=== PATIENT | female | born 1930 | race Caucasian/White ===

== ENCOUNTER 2017-11-24 14:17 | Inpatient (IN) | payer MEDICARE, OTHER ==
[2017-11-24] MEDS ORDERED: IPRATROPIUM-ALBUTEROL 3 ML NEB INHALATION STA (14:25)
--- NOTE | 2017-11-24 14:33 | ED ---
SOB HPI - General Stated Complaint: Cough, Poss pneumonia Time Seen by Provider: 11/24/17 14:18 Source: patient, EMS, RN notes reviewed Mode of arrival: EMS Limitations: no limitations - History of Present Illness Initial Comments: This an 87-year-old female presents emergency Department from her intermediate home with chief complaint cough congestion shortness of breath. Patient states she's been sick for last 3 days. Patient states a hot and cold with no reported fever. Patient denies any chest pain states he has had some mild shortness breath with productive cough. She denies sore throat but she hasn't some mild sinus congestion. Patient denies abdominal pain including nausea, vomiting, diarrhea constipation. Patient states that she does have some mild leg swelling though this is for. She does not believe that she takes a water pill has not been diagnosed with CHF. Patient denies any sick contacts. Patient denies any history of asthma or COPD. - Related Data Home Medications Medication Instructions Recorded Confirmed Citalopram Hydrobromide [CeleXA] 20 mg PO HS 10/02/16 11/24/17 Aspirin EC [Ecotrin Low Dose] 81 mg PO HS 11/24/17 11/24/17 Hydrochlorothiazide [Hydrodiuril] 25 mg PO DAILY 11/24/17 11/24/17 Losartan Potassium 100 mg PO DAILY 11/24/17 11/24/17 amLODIPine [Norvasc] 5 mg PO DAILY 11/24/17 11/24/17 busPIRone HCl [Buspar] 5 mg PO BID 11/24/17 11/24/17 Allergies Allergy/AdvReac Type Severity Reaction Status Date / Time codeine AdvReac Nausea & Verified 11/24/17 14:38 Vomiting Review of Systems ROS Statement: Those systems with pertinent positive or pertinent negative responses have been documented in the HPI. ROS Other: All systems not noted in ROS Statement are negative. Past Medical History Past Medical History: Hypertension, Osteoarthritis (OA) Additional Past Medical History / Comment(s): HX OF GLAUCOMA, HX OF CELLULITIS IN LEGS & FEET OCT 2016., BLOOD IN STOOL. History of Any Multi-Drug Resistant Organisms: None Reported Past Surgical History: Bladder Surgery, Hysterectomy, Tonsillectomy Additional Past Surgical History / Comment(s): bunionectomy rosa feet, laser eye sx for glaucoma, plastic sx on nose, bladder suspension, egd/colonoscopy. Past Anesthesia/Blood Transfusion Reactions: No Reported Reaction Past Psychological History: Anxiety, Depression Smoking Status: Former smoker Past Alcohol Use History: None Reported Additional Past Alcohol Use History / Comment(s): started smoking at ge 17 smoked 1-2 ppd, quit in early s Past Drug Use History: None Reported - Past Family History Mother Family Medical History: Coronary Artery Disease (CAD) Additional Family Medical History / Comment(s): heart problems Father Additional Family Medical History / Comment(s): anuerysm General Exam General appearance: alert, in no apparent distress Head exam: Present: atraumatic, normocephalic, normal inspection Eye exam: Present: normal appearance, PERRL, EOMI. Absent: scleral icterus, conjunctival injection, periorbital swelling ENT exam: Present: normal exam, normal oropharynx, mucous membranes moist, TM's normal bilaterally, normal external ear exam Neck exam: Present: normal inspection, full ROM. Absent: tenderness, meningismus, lymphadenopathy Respiratory exam: Present: rhonchi (Minimal). Absent: normal lung sounds bilaterally, respiratory distress, wheezes, rales, stridor Cardiovascular Exam: Present: regular rate, normal rhythm, normal heart sounds. Absent: systolic murmur, diastolic murmur, rubs, gallop, clicks GI/Abdominal exam: Present: soft, normal bowel sounds. Absent: distended, tenderness, guarding, rebound, rigid Extremities exam: Present: pedal edema (Minimal) Skin exam: Present: warm, dry Course Vital Signs 11/24/17 11/24/17 11/24/17 14:20 14:43 14:52 Temperature 99.2 F Pulse Rate 79 77 Respiratory 20 Rate Blood Pressure 107/52 O2 Sat by Pulse 92 L 91 L Oximetry 11/24/17 15:58 Temperature Pulse Rate 92 Respiratory 20 Rate Blood Pressure 99/50 O2 Sat by Pulse 91 L Oximetry Medical Decision Making - Medical Decision Making 87-year-old female presented emergency from for fever cough congestion. Clinically the patient has pneumonia. Patient was 7 Rocephin and azithromycin. - Lab Data Result diagrams: 11/24/17 14:45 11/24/17 14:45 Lab Results 11/24/17 11/24/17 11/24/17 Range/Units 14:45 14:45 14:45 WBC 18.9 H (3.8-10.6) k/uL RBC 4.11 (3.80-5.40) m/uL Hgb 12.3 (11.4-16.0) gm/dL Hct 38.4 (34.0-46.0) % MCV 93.4 (80.0-100.0) fL MCH 29.8 (25.0-35.0) pg MCHC 31.9 (31.0-37.0) g/dL RDW 12.7 (11.5-15.5) % Plt Count 154 (150-450) k/uL Neutrophils % 94 % Lymphocytes % 2 % Monocytes % 3 % Eosinophils % 0 % Basophils % 0 % Neutrophils # 17.7 H (1.3-7.7) k/uL Lymphocytes # 0.4 L (1.0-4.8) k/uL Monocytes # 0.6 (0-1.0) k/uL Eosinophils # 0.1 (0-0.7) k/uL Basophils # 0.0 (0-0.2) k/uL PT (9.0-12.0) sec INR (<1.2) APTT (22.0-30.0) sec Sodium 140 (137-145) mmol/L Potassium 4.0 (3.5-5.1) mmol/L Chloride 103 (98-107) mmol/L Carbon Dioxide 27 (22-30) mmol/L Anion Gap 10 mmol/L BUN 40 H (7-17) mg/dL Creatinine 1.30 H (0.52-1.04) mg/dL Est GFR (MDRD) Af Amer 47 (>60 ml/min/1.73 sqM) Est GFR (MDRD) Non-Af 39 (>60 ml/min/1.73 sqM) Glucose 169 H (74-99) mg/dL Plasma Lactic Acid Yash (0.7-2.0) mmol/L Calcium 9.2 (8.4-10.2) mg/dL Magnesium 1.6 (1.6-2.3) mg/dL Total Bilirubin 0.8 (0.2-1.3) mg/dL AST 12 L (14-36) U/L ALT 23 (9-52) U/L Alkaline Phosphatase 78 (38-126) U/L Total Creatine Kinase 63 (30-135) U/L CK-MB (CK-2) 0.4 (0.0-2.4) ng/mL CK-MB (CK-2) Rel Index 0.6 Troponin I <0.012 (0.000-0.034) ng/mL NT-Pro-B Natriuret Pep pg/mL Total Protein 7.1 (6.3-8.2) g/dL Albumin 3.6 (3.5-5.0) g/dL Influenza Type A RNA (Not Detectd) Influenza Type B (PCR) (Not Detectd) 11/24/17 11/24/17 11/24/17 Range/Units 14:45 14:45 14:45 WBC (3.8-10.6) k/uL RBC (3.80-5.40) m/uL Hgb (11.4-16.0) gm/dL Hct (34.0-46.0) % MCV (80.0-100.0) fL MCH (25.0-35.0) pg MCHC (31.0-37.0) g/dL RDW (11.5-15.5) % Plt Count (150-450) k/uL Neutrophils % % Lymphocytes % % Monocytes % % Eosinophils % % Basophils % % Neutrophils # (1.3-7.7) k/uL Lymphocytes # (1.0-4.8) k/uL Monocytes # (0-1.0) k/uL Eosinophils # (0-0.7) k/uL Basophils # (0-0.2) k/uL PT 12.0 (9.0-12.0) sec INR 1.3 H (<1.2) APTT 25.4 (22.0-30.0) sec Sodium (137-145) mmol/L Potassium (3.5-5.1) mmol/L Chloride (98-107) mmol/L Carbon Dioxide (22-30) mmol/L Anion Gap mmol/L BUN (7-17) mg/dL Creatinine (0.52-1.04) mg/dL Est GFR (MDRD) Af Amer (>60 ml/min/1.73 sqM) Est GFR (MDRD) Non-Af (>60 ml/min/1.73 sqM) Glucose (74-99) mg/dL Plasma Lactic Acid Yash 1.0 (0.7-2.0) mmol/L Calcium (8.4-10.2) mg/dL Magnesium (1.6-2.3) mg/dL Total Bilirubin (0.2-1.3) mg/dL AST (14-36) U/L ALT (9-52) U/L Alkaline Phosphatase (38-126) U/L Total Creatine Kinase (30-135) U/L CK-MB (CK-2) (0.0-2.4) ng/mL CK-MB (CK-2) Rel Index Troponin I (0.000-0.034) ng/mL NT-Pro-B Natriuret Pep 276 pg/mL Total Protein (6.3-8.2) g/dL Albumin (3.5-5.0) g/dL Influenza Type A RNA (Not Detectd) Influenza Type B (PCR) (Not Detectd) 11/24/17 Range/Units 14:45 WBC (3.8-10.6) k/uL RBC (3.80-5.40) m/uL Hgb (11.4-16.0) gm/dL Hct (34.0-46.0) % MCV (80.0-100.0) fL MCH (25.0-35.0) pg MCHC (31.0-37.0) g/dL RDW (11.5-15.5) % Plt Count (150-450) k/uL Neutrophils % % Lymphocytes % % Monocytes % % Eosinophils % % Basophils % % Neutrophils # (1.3-7.7) k/uL Lymphocytes # (1.0-4.8) k/uL Monocytes # (0-1.0) k/uL Eosinophils # (0-0.7) k/uL Basophils # (0-0.2) k/uL PT (9.0-12.0) sec INR (<1.2) APTT (22.0-30.0) sec Sodium (137-145) mmol/L Potassium (3.5-5.1) mmol/L Chloride (98-107) mmol/L Carbon Dioxide (22-30) mmol/L Anion Gap mmol/L BUN (7-17) mg/dL Creatinine (0.52-1.04) mg/dL Est GFR (MDRD) Af Amer (>60 ml/min/1.73 sqM) Est GFR (MDRD) Non-Af (>60 ml/min/1.73 sqM) Glucose (74-99) mg/dL Plasma Lactic Acid Yash (0.7-2.0) mmol/L Calcium (8.4-10.2) mg/dL Magnesium (1.6-2.3) mg/dL Total Bilirubin (0.2-1.3) mg/dL AST (14-36) U/L ALT (9-52) U/L Alkaline Phosphatase (38-126) U/L Total Creatine Kinase (30-135) U/L CK-MB (CK-2) (0.0-2.4) ng/mL CK-MB (CK-2) Rel Index Troponin I (0.000-0.034) ng/mL NT-Pro-B Natriuret Pep pg/mL Total Protein (6.3-8.2) g/dL Albumin (3.5-5.0) g/dL Influenza Type A RNA Not Detected (Not Detectd) Influenza Type B (PCR) Not Detected (Not Detectd) - EKG Data EKG Comments: EKG performed at 14:43 normal sinus rhythm rate of 70 AL 144 QRS 82 QT/QTC 384/ 414 Disposition Clinical Impression: Pneumonia Disposition: ADMITTED IP TO THIS HOSP Condition: Stable Referrals: Sidra Peace DO [Primary Care Provider] - 1-2 days
[2017-11-24 15:05] LABS: Basophils % (A) 0 %; Eosinophils # (A) 0.1 k/uL (0-0.7); Eosinophils % (A) 0 %; HCT 38.4 % (34.0-46.0); HGB 12.3 gm/dL (11.4-16.0); Lymphocytes # (A) 0.4 k/uL (1.0-4.8); Lymphocytes % (A) 2 %; MCH 29.8 pg (25.0-35.0); MCHC 31.9 g/dL (31.0-37.0); MCV 93.4 fL (80.0-100.0); Mean Platelet Volume 8.4; Monocytes # (A) 0.6 k/uL (0-1.0); Monocytes % (A) 3 %; Neutrophils # (A) 17.7 k/uL (1.3-7.7); Neutrophils % (A) 94 %; Platelet Count 154 k/uL (150-450); RBC 4.11 m/uL (3.80-5.40); RDW 12.7 % (11.5-15.5); WBC 18.9 k/uL (3.8-10.6)
[2017-11-24 15:12] LABS: Albumin 3.6 g/dL (3.5-5.0); Calcium 9.2 mg/dL (8.4-10.2); Magnesium 1.6 mg/dL (1.6-2.3); Total Bilirubin 0.8 mg/dL (0.2-1.3); Total Protein 7.1 g/dL (6.3-8.2)
--- NOTE | 2017-11-24 15:28 | XR ---
EXAMINATION TYPE: XR chest 2V DATE OF EXAM: 11/24/2017 COMPARISON: October 02, 2016. HISTORY: Chest pain TECHNIQUE: Frontal and lateral views of the chest are obtained. FINDINGS: Opacity in the right upper lobe has slightly improved since the prior study but still marianne ins present. The computed tomography from October 02, 2016 did not reveal any pathology at this loca tion. There is a deformity of several right ribs which was seen on the previous examination. No defin ite pneumothorax or pleural effusion is identified. There is exaggeration of the normal thoracic kyph osis. IMPRESSION: No acute cardiopulmonary process.
[2017-11-24 15:32] LABS: Creatine Kinase 63 U/L (30-135)
[2017-11-24] MEDS ORDERED: SODIUM CHLORIDE 0.9% 1,000 ML IV ONE (15:36)
[2017-11-24 15:44] LABS: Creatine Kinase MB 0.4 ng/mL (0.0-2.4); Troponin I <0.012 ng/mL (0.000-0.034)
[2017-11-24 15:47] LABS: INR 1.3 (<1.2); Partial Thromboplastin Time 25.4 sec (22.0-30.0)
[2017-11-24] MEDS: SODIUM CHLORIDE 0.9% 1,000 ML IV SCH (15:58)
[2017-11-24] MEDS ORDERED: cefTRIAXone IN SWFI 1,000 MG/10 ML SYRINGE IVP STA (16:17)
[2017-11-24] MEDS ORDERED: AZITHROMYCIN 500 MG in SODIUM CHLORIDE 0.9% 250 ML IVPB STA (16:18)
[2017-11-24] MEDS ORDERED: PNEUMONIA PROTOCOL UTILIZED 1 EACH MISC PO PRN (16:21)
[2017-11-24] MEDS ORDERED: HYDROcodone/APAP 5-325MG 1 EACH TAB PO STA (16:25)
[2017-11-24] MEDS: IPRATROPIUM-ALBUTEROL 3 ML NEB INHALATION PRN (18:00)
[2017-11-24] MEDS ORDERED: FUROSEMIDE 10 MG/ML 2 ML VIAL IV STA (18:03)
--- NOTE | 2017-11-24 18:27 | XR ---
EXAMINATION TYPE: XR chest 1V portable DATE OF EXAM: 11/24/2017 COMPARISON: September 24 2018 HISTORY: Shortness of breath TECHNIQUE: Single frontal view of the chest is obtained. FINDINGS: Single upright portable view the chest demonstrates prior rib fracture and a mid right rib . No pneumothorax or sizable pleural effusion is identified. The cardiac silhouette is within normal limits. Calcified aortic arch which slightly displaces the trachea to the right. IMPRESSION: No definite abnormalities identified on this single upright portable view of the chest.
[2017-11-24] MEDS: FUROSEMIDE 10 MG/ML 4 ML VIAL IV STA ×2 (18:31→18:33)
[2017-11-24] MEDS: methylPREDNISolone SOD SUCCI 125 MG/2 ML VIAL IV STA ×2 (19:40)
[2017-11-24] MEDS: cefTRIAXone IN SWFI 1,000 MG/10 ML SYRINGE IVP SCH (20:32)
[2017-11-24 20:44] LABS: Glucose,Whole Blood 133 mg/dL (75-99)
[2017-11-24] MEDS: INSULIN ASPART 100 UNIT/ML 1 ML 10 ML VIAL SQ SCH (21:04)
[2017-11-24] MEDS: methylPREDNISolone SOD SUCCI 125 MG/2 ML VIAL IV SCH (23:24)
[2017-11-25 05:33] LABS: Appearance,Urine Cloudy (Clear); Bacteria,Urine Occasional /hpf; Bilirubin,Urine Negative (Negative); Blood,Urine Small (Negative); Color,Urine Yellow; Glucose,Urine (UA) Negative (Negative); Hyaline Casts,Urine 8 /lpf (0-2); Ketones,Urine Negative (Negative); Leukocyte Esterase,Urine Large (Negative); Mucus,Urine Rare /hpf; Nitrite,Urine Negative (Negative); Protein,Urine 1+ (Negative); RBC,Urine 22 /hpf (0-5); Specific Gravity,Urine 1.016 (1.001-1.035); Squamous Epithelial Cell,Urine 3 /hpf (0-4); Urobilinogen,Urine <2.0 mg/dL (<2.0); WBC,Urine 101 /hpf (0-5)
[2017-11-25] MEDS: SODIUM CHLORIDE 0.9% 1,000 ML IV SCH (05:35)
[2017-11-25] MEDS: methylPREDNISolone SOD SUCCI 125 MG/2 ML VIAL IV SCH ×4 (05:39→23:38)
[2017-11-25 06:50] LABS: Glucose,Whole Blood 163 mg/dL (75-99)
[2017-11-25] MEDS: IPRATROPIUM-ALBUTEROL 3 ML NEB INHALATION PRN ×4 (07:53→19:32)
[2017-11-25] MEDS: INSULIN ASPART 100 UNIT/ML 1 ML 10 ML VIAL SQ SCH ×4 (07:54→21:54)
--- NOTE | 2017-11-25 11:51 | XR ---
EXAMINATION TYPE: XR chest 2V DATE OF EXAM: 11/25/2017 COMPARISON: Prior chest x-ray 11/24/2017 HISTORY: Pneumonia TECHNIQUE: Frontal and lateral views of the chest are obtained. FINDINGS: Left lower lobe airspace disease persists. Heart size is stable and prominent. Patient is rotated. Lung volumes are low. No evident pneumothorax. Old rib fractures noted incidentally. IMPRESSION: Findings suggest left lower lobe pneumonia and possible associated effusion, follow-up r ecommended.
[2017-11-25 12:07] LABS: Glucose,Whole Blood 210 mg/dL (75-99)
[2017-11-25 12:16] LABS: Basophils % (A) 0 %; Eosinophils % (A) 0 %; HCT 39.4 % (34.0-46.0); HGB 12.1 gm/dL (11.4-16.0); Hypochromasia Marked; Lymphocytes # (A) 0.4 k/uL (1.0-4.8); Lymphocytes % (A) 2 %; MCH 29.8 pg (25.0-35.0); MCHC 30.8 g/dL (31.0-37.0); MCV 96.7 fL (80.0-100.0); Mean Platelet Volume 9.5; Monocytes # (A) 0.6 k/uL (0-1.0); Monocytes % (A) 2 %; Neutrophils # (A) 21.8 k/uL (1.3-7.7); Neutrophils % (A) 95 %; Platelet Count 153 k/uL (150-450); RBC 4.08 m/uL (3.80-5.40); RDW 13.6 % (11.5-15.5); WBC 22.9 k/uL (3.8-10.6)
[2017-11-25 12:26] LABS: Calcium 8.8 mg/dL (8.4-10.2); Potassium 4.2 mmol/L (3.5-5.1)
[2017-11-25] MEDS: cefTRIAXone IN SWFI 1,000 MG/10 ML SYRINGE IVP SCH ×2 (12:30→20:12)
[2017-11-25 15:59] LABS: Hemoglobin A1C 6.7 % (4.0-6.0)
[2017-11-25 16:59] LABS: Glucose,Whole Blood 277 mg/dL (75-99)
[2017-11-25] MEDS ORDERED: AZITHROMYCIN 500 MG in SODIUM CHLORIDE 0.9% 250 ML IVPB SCH (17:00)
[2017-11-25] MEDS ORDERED: INSULIN ASPART 100 UNIT/ML 1 ML 10 ML VIAL SQ ONE (17:03)
[2017-11-25] MEDS: AZITHROMYCIN 500 MG TAB PO SCH (17:28)
--- NOTE | 2017-11-25 17:46 | P.HPIM ---
History of Present Illness H&P Date: 11/24/17 Chief Complaint: Cough with difficulty in breathing Mrs. Iraheta is an 87-year-old female with a past medical history of hypertension osteoarthritis coming into the hospital with a chief complaint of difficulty in breathing along with cough for the past 3 days. Patient lives in a [facility] facility. Patient states that she has been sick for the past 3 days having fevers on and off associated with cough that is productive in nature. She was also having difficulty in breathing. Patient denies having any sore throat. Patient started is at the bedside and states that she had her flu vaccine for this season . Patient complains of pain in her upper back since this morning. Patient denies having any chest pain. She denies having abdominal pain nausea vomiting diarrhea or constipation. At baseline patient is able to take care of her ADLs. But for the past 2-3 days she has been mostly in bed. Patient denies having any sick contacts She started to have the upper back pain since this morning, pain is more when she tries to move it in a certain direction. No recent travel. No lower extremity swelling. Review of Systems REVIEW OF SYSTEMS: PSYCH: No anxiety or depression NEURO:No c/o weakness of the extremties, No facial droop, No speech abnormalities. VASCULAR: Peripheral nervous system within the normal limits no edema HEMATOLOGIC: No history of easy bleeding and bruising . No recent infections . RESPIRATORY: As per HPI IMMUNE: No infections INTEGUMENT: no rashes OPHTHALMOLOGIC: No blurry vision and no eye discharge : No dysuria or hematuria CARDIAC: No chest pain , mild shortness of breath ,no paroxysmal nocturnal dyspnea MUSCULOSKELETAL : No Aches or pains in the joints or muscles. GI: No abdominal pain, Nausea or vomiting. No constipation or diarrhea. Past Medical History Past Medical History: Hypertension, Osteoarthritis (OA) Additional Past Medical History / Comment(s): HX OF GLAUCOMA, HX OF CELLULITIS IN LEGS & FEET OCT 2016., BLOOD IN STOOL. History of Any Multi-Drug Resistant Organisms: None Reported Past Surgical History: Bladder Surgery, Hysterectomy, Tonsillectomy Additional Past Surgical History / Comment(s): bunionectomy rosa feet, laser eye sx for glaucoma, plastic sx on nose, bladder suspension, egd/colonoscopy. Past Anesthesia/Blood Transfusion Reactions: No Reported Reaction Past Psychological History: Anxiety, Depression Smoking Status: Former smoker Past Alcohol Use History: None Reported Additional Past Alcohol Use History / Comment(s): started smoking at ge 17 smoked 1-2 ppd, quit in early s Past Drug Use History: None Reported - Past Family History Mother Family Medical History: Coronary Artery Disease (CAD) Additional Family Medical History / Comment(s): heart problems Father Additional Family Medical History / Comment(s): anuerysm Medications and Allergies Home Medications Medication Instructions Recorded Confirmed Type Citalopram Hydrobromide [CeleXA] 20 mg PO HS 10/02/16 11/24/17 History Aspirin EC [Ecotrin Low Dose] 81 mg PO HS 11/24/17 11/24/17 History Hydrochlorothiazide [Hydrodiuril] 25 mg PO DAILY 11/24/17 11/24/17 History Losartan Potassium 100 mg PO DAILY 11/24/17 11/24/17 History amLODIPine [Norvasc] 5 mg PO DAILY 11/24/17 11/24/17 History busPIRone HCl [Buspar] 5 mg PO BID 11/24/17 11/24/17 History Allergies Allergy/AdvReac Type Severity Reaction Status Date / Time codeine AdvReac Nausea & Verified 11/24/17 14:38 Vomiting Physical Exam Vitals: Vital Signs Temp Pulse Resp BP Pulse Ox 11/24/17 17:12 99.1 F 85 22 100/55 93 L 11/24/17 15:58 92 20 99/50 91 L 11/24/17 14:52 77 11/24/17 14:43 91 L 11/24/17 14:20 99.2 F 79 20 107/52 92 L Intake and Output 11/24/17 11/24/17 11/24/17 06:59 14:59 22:59 Other: Weight 74.843 kg Patient Weight 11/25/17 06:59 Weight 74.843 kg GENERAL EXAM GEN. APPEARANCE: alert, in no apparent distress HEAD EXAM: atraumatic, normocephalic, normal inspection EYE EXAM: normal appearance, PERRL, EOMI. Absent: scleral icterus, conjunctival injection, periorbital swelling ENT EXAM: normal exam, mucous membranes moist NECK EXAM: normal inspection. Absent: tenderness, meningismus, full ROM, lymphadenopathy RESPIRATORY EXAM: Coarse breath sounds in all lung [place], no wheezing or crackles CARDIOVASCULAR EXAM: regular rate, normal rhythm, normal heart sounds. Absent : systolic murmur, diastolic murmur, rubs, gallop, clicks GI/ABDOMINAL EXAM: soft, normal bowel sounds. Absent: distended, tenderness, guarding, rebound, rigid EXTREMITIES EXAM: normal inspection, full ROM, normal capillary refill. Absent : tenderness, pedal edema, joint swelling, calf tenderness BACK EXAM: Point tenderness in the upper back on the right side NEUROLOGICAL EXAM: alert, oriented X3, CN II-XII intact, no motor or sensory deficit PSYCHIATRIC EXAM: normal affect, normal mood SKIN EXAM: warm, dry, intact, normal color. Absent: rash Results CBC & Chem 7: 11/24/17 14:45 11/24/17 14:45 Labs: Abnormal Lab Results - Last 24 Hours (Table) 11/24/17 11/24/17 11/24/17 Range/Units 14:45 14:45 14:45 WBC 18.9 H (3.8-10.6) k/uL Neutrophils # 17.7 H (1.3-7.7) k/uL Lymphocytes # 0.4 L (1.0-4.8) k/uL INR 1.3 H (<1.2) BUN 40 H (7-17) mg/dL Creatinine 1.30 H (0.52-1.04) mg/dL Glucose 169 H (74-99) mg/dL AST 12 L (14-36) U/L Assessment and Plan Assessment: Pneumonia - CAP - most likely gram-negative organisms - present at the time of admission Leukocytosis secondary to the above Acute kidney injury most likely secondary to dehydration due to #1 Hypertension Osteoarthritis Acute upper back pain most likely muscular skeletal in nature Plan: Patient has clinical features suggestive of pneumonia with ongoing fever chest pain and difficulty in breathing and hypoxia so she has been started on ceftriaxone and Zithromax. We will continue with IV fluids for her acute kidney injury. The patient has acute upper back pain with point tenderness most likely muscular skeletal in nature and due to the cough that she has had. We'll resume her home medications and further recommendations depending on the progress of the patient. The treatment plan was discussed in detail with the patient and her daughter who is at the bedside.
--- NOTE | 2017-11-25 17:47 | P.PN ---
Subjective Mrs. Iraheta is an 87-year-old female with a past medical history of hypertension osteoarthritis coming into the hospital with a chief complaint of difficulty in breathing along with cough for the past 3 days. Patient lives in a long term facility. Patient states that she has been sick for the past 3 days having fevers on and off associated with cough that is productive in nature. She was also having difficulty in breathing. Patient denies having any sore throat. Patient started is at the bedside and states that she had her flu vaccine for this season . Patient complains of pain in her upper back since this morning. Patient denies having any chest pain. She denies having abdominal pain nausea vomiting diarrhea or constipation. At baseline patient is able to take care of her ADLs. But for the past 2-3 days she has been mostly in bed. Patient denies having any sick contacts On 11/25/2017 : As per the nursing staff report patient was very short of breath last night and was having bilateral crackles. Her IV fluids have been discontinued and she did receive a dose of Lasix after which she felt much better. This morning patient is sitting up in a chair besides her bed and her daughter is at the bedside. She states her breathing has improved compared to last night. She still has some point tenderness in her upper back. She denies having any abdominal pain nausea vomiting or diarrhea. No complaints of fevers , chest pain chills or rigors. REVIEW OF SYSTEMS: PSYCH: No anxiety or depression NEURO:No c/o weakness of the extremties, No facial droop, No speech abnormalities. VASCULAR: No LE swelling . HEMATOLOGIC: No history of easy bleeding and bruising . RESPIRATORY: As above Objective - Vital Signs Vital signs: Vital Signs Temp 97.1 F L 11/25/17 07:00 Pulse 77 11/25/17 08:08 Resp 20 11/25/17 07:00 BP 121/61 11/25/17 07:00 Pulse Ox 98 11/25/17 07:00 Intake & Output 11/24/17 11/25/17 11/25/17 18:59 06:59 18:59 Output Total 75 Balance -75 Weight 74.843 kg Output: Urine 75 Other: Voiding Method Indwelling Catheter Indwelling Catheter Indwelling Catheter # Voids 1 - Exam GEN. APPEARANCE: alert, in no apparent distress HEAD EXAM: atraumatic, normocephalic, normal inspection EYE EXAM: normal appearance, PERRL, EOMI. Absent: scleral icterus, conjunctival injection, periorbital swelling ENT EXAM: normal exam, mucous membranes moist NECK EXAM: normal inspection. Absent: tenderness, meningismus, full ROM, lymphadenopathy RESPIRATORY EXAM: Coarse breath sounds in all lung [place], crackles at the lower lung bases bilaterally CARDIOVASCULAR EXAM: regular rate, normal rhythm, normal heart sounds. Absent : systolic murmur, diastolic murmur, rubs, gallop, clicks GI/ABDOMINAL EXAM: soft, normal bowel sounds. Absent: distended, tenderness, guarding, rebound, rigid EXTREMITIES EXAM: normal inspection, full ROM, normal capillary refill. Absent : tenderness, pedal edema, joint swelling, calf tenderness BACK EXAM: Point tenderness in the upper back on the right side NEUROLOGICAL EXAM: alert, oriented X3, CN II-XII intact, no motor or sensory deficit PSYCHIATRIC EXAM: normal affect, normal mood SKIN EXAM: warm, dry, intact, normal color. Absent: rash - Labs CBC & Chem 7: 11/24/17 14:45 11/24/17 14:45 Labs: Abnormal Lab Results - Last 24 Hours (Table) 11/24/17 11/24/17 11/24/17 Range/Units 14:45 14:45 14:45 WBC 18.9 H (3.8-10.6) k/uL Neutrophils # 17.7 H (1.3-7.7) k/uL Lymphocytes # 0.4 L (1.0-4.8) k/uL INR 1.3 H (<1.2) BUN 40 H (7-17) mg/dL Creatinine 1.30 H (0.52-1.04) mg/dL Glucose 169 H (74-99) mg/dL POC Glucose (mg/dL) (75-99) mg/dL AST 12 L (14-36) U/L Urine Appearance (Clear) Urine Protein (Negative) Urine Blood (Negative) Ur Leukocyte Esterase (Negative) Urine RBC (0-5) /hpf Urine WBC (0-5) /hpf Urine WBC Clumps (None) /hpf Urine Bacteria (None) /hpf Hyaline Casts (0-2) /lpf Urine Mucus (None) /hpf 11/24/17 11/25/17 11/25/17 Range/Units 20:42 05:20 06:47 WBC (3.8-10.6) k/uL Neutrophils # (1.3-7.7) k/uL Lymphocytes # (1.0-4.8) k/uL INR (<1.2) BUN (7-17) mg/dL Creatinine (0.52-1.04) mg/dL Glucose (74-99) mg/dL POC Glucose (mg/dL) 133 H 163 H (75-99) mg/dL AST (14-36) U/L Urine Appearance Cloudy H (Clear) Urine Protein 1+ H (Negative) Urine Blood Small H (Negative) Ur Leukocyte Esterase Large H (Negative) Urine RBC 22 H (0-5) /hpf Urine WBC 101 H (0-5) /hpf Urine WBC Clumps Few H (None) /hpf Urine Bacteria Occasional H (None) /hpf Hyaline Casts 8 H (0-2) /lpf Urine Mucus Rare H (None) /hpf Assessment and Plan Assessment: Pneumonia - CAP - most likely gram-negative organisms - present at the time of admission Leukocytosis secondary to the above Acute kidney injury most likely secondary to dehydration due to #1 Hypertension Osteoarthritis Acute upper back pain most likely muscular skeletal in nature Acute respiratory distress secondary to fluid overload - she was given a dose of Lasix last night and felt much better this morning. Plan: Patient has clinical features suggestive of pneumonia with ongoing fever chest pain and difficulty in breathing and hypoxia so she has been started on ceftriaxone and Zithromax. His IV fluids have been put on hold as she had bilateral crackles and respiratory distress yesterday . Check her lytes and CBC this morning and follow up on the chest x-ray The patient has acute upper back pain with point tenderness most likely muscular skeletal in nature and due to the cough that she has had. We will continue with her home medications and further recommendations depending on the progress of the patient. The treatment plan was discussed in detail with the patient and her daughter who is at the bedside.
[2017-11-25] MEDS: ASPIRIN 81 MG PO SCH (20:11)
[2017-11-25] MEDS: busPIRone HCl 5 MG TAB PO SCH (20:11)
[2017-11-25 20:50] LABS: Glucose,Whole Blood 234 mg/dL (75-99)
[2017-11-26] MEDS: methylPREDNISolone SOD SUCCI 125 MG/2 ML VIAL IV SCH ×4 (05:50→22:57)
[2017-11-26] MEDS: IPRATROPIUM-ALBUTEROL 3 ML NEB INHALATION PRN ×2 (07:07→11:17)
[2017-11-26] MEDS: busPIRone HCl 5 MG TAB PO SCH ×2 (07:50→20:43)
[2017-11-26] MEDS: cefTRIAXone IN SWFI 1,000 MG/10 ML SYRINGE IVP SCH ×2 (07:50→20:46)
[2017-11-26] MEDS: amLODIPine 5 MG TAB PO SCH (07:51)
[2017-11-26] MEDS: INSULIN ASPART 100 UNIT/ML 1 ML 10 ML VIAL SQ SCH ×4 (07:51→20:46)
[2017-11-26 07:58] LABS: Glucose,Whole Blood 191 mg/dL (75-99)
[2017-11-26 10:24] LABS: Basophils % (A) 0 %; Eosinophils % (A) 0 %; HCT 37.1 % (34.0-46.0); HGB 11.1 gm/dL (11.4-16.0); Hypochromasia Moderate; Lymphocytes # (A) 0.4 k/uL (1.0-4.8); Lymphocytes % (A) 3 %; MCH 28.8 pg (25.0-35.0); MCHC 29.9 g/dL (31.0-37.0); MCV 96.3 fL (80.0-100.0); Mean Platelet Volume 9.8; Monocytes # (A) 0.5 k/uL (0-1.0); Monocytes % (A) 4 %; Neutrophils # (A) 13.3 k/uL (1.3-7.7); Neutrophils % (A) 93 %; Platelet Count 156 k/uL (150-450); RBC 3.86 m/uL (3.80-5.40); RDW 13.8 % (11.5-15.5); WBC 14.3 k/uL (3.8-10.6)
[2017-11-26 10:41] LABS: Calcium 8.9 mg/dL (8.4-10.2)
[2017-11-26 11:36] LABS: Glucose,Whole Blood 234 mg/dL (75-99)
--- NOTE | 2017-11-26 15:14 | P.CNPUL ---
History of Present Illness Consult date: 11/26/17 Requesting physician: Rosalina Bernard Chief complaint: Shortness of breath, cough, congestion History of present illness: This is a very pleasant 87-year-old female patient who follows with Dr. Peace as her primary care physician. She resides at [facility]. She has a history of hypertension, depression. She has a very remote history of smoking and quit in the early . She did smoke for several years at 1-2 packs per day prior. She denies being on inhalers or any oxygen in the outpatient setting. She has somewhat of a poor historian. She is unclear as to why she is here. She does state that her daughter was worried about her. She had been having some increasing shortness of breath, cough and congestion. She denies any chest pain, palpitations or dizziness. She denied any nausea, vomiting or diarrhea. Her chest x-ray did reveal some infiltrate of the left lower lobe. Culture reveals no growth to date. White count 14.3, hemoglobin 11.1, creatinine 1.58 and she has been afebrile. Troponin negative. ProBNP 276. Influenza screen negative. She is requiring high FiO2 currently at 8 L of high flow to maintain O2 saturations in the 90s. No tachycardia, no tachypnea, hemodynamically stable. She has been initiated on bronchodilators, IV Solu-Medrol, ceftriaxone and azithromycin. Review of Systems ROS unobtainable: due to mental status Past Medical History Past Medical History: Hypertension, Osteoarthritis (OA) Additional Past Medical History / Comment(s): HX OF GLAUCOMA, HX OF CELLULITIS IN LEGS & FEET OCT 2016., BLOOD IN STOOL. History of Any Multi-Drug Resistant Organisms: None Reported Past Surgical History: Bladder Surgery, Hysterectomy, Tonsillectomy Additional Past Surgical History / Comment(s): bunionectomy rosa feet, laser eye sx for glaucoma, plastic sx on nose, bladder suspension, egd/colonoscopy. Past Anesthesia/Blood Transfusion Reactions: No Reported Reaction Past Psychological History: Anxiety, Depression Smoking Status: Former smoker Past Alcohol Use History: None Reported Additional Past Alcohol Use History / Comment(s): started smoking at ge 17 smoked 1-2 ppd, quit in early s Past Drug Use History: None Reported - Past Family History Mother Family Medical History: Coronary Artery Disease (CAD) Additional Family Medical History / Comment(s): heart problems Father Additional Family Medical History / Comment(s): anuerysm Medications and Allergies Home Medications Medication Instructions Recorded Confirmed Type Citalopram Hydrobromide [CeleXA] 20 mg PO HS 10/02/16 11/24/17 History Aspirin EC [Ecotrin Low Dose] 81 mg PO HS 11/24/17 11/24/17 History Hydrochlorothiazide [Hydrodiuril] 25 mg PO DAILY 11/24/17 11/24/17 History Losartan Potassium 100 mg PO DAILY 11/24/17 11/24/17 History amLODIPine [Norvasc] 5 mg PO DAILY 11/24/17 11/24/17 History busPIRone HCl [Buspar] 5 mg PO BID 11/24/17 11/24/17 History Allergies Allergy/AdvReac Type Severity Reaction Status Date / Time codeine AdvReac Nausea & Verified 11/24/17 14:38 Vomiting Physical Exam Vitals: Vital Signs Temp Pulse Pulse Resp BP BP Pulse Ox 11/26/17 11:30 84 11/26/17 11:17 82 11/26/17 07:19 88 11/26/17 07:10 84 94 L 11/26/17 07:00 96.7 F L 84 18 114/59 94 L 11/25/17 23:00 97.0 F L 88 16 100/44 94 L 11/25/17 19:45 76 11/25/17 19:32 76 11/25/17 17:10 100/59 94 L 11/25/17 16:00 99/51 11/25/17 15:49 80 11/25/17 15:36 80 11/25/17 15:00 96.7 F L 86 20 86/49 94/46 95 Intake and Output 11/25/17 11/26/17 11/26/17 22:59 06:59 14:59 Intake Total 480 Output Total 400 400 Balance 80 -400 Intake: Oral 480 Output: Urine 400 400 Other: Voiding Method Indwelling Catheter Indwelling Catheter # Voids 1 1 # Bowel Movements 1 GENERAL EXAM: Alert, active, comfortable in no apparent distress. HEAD: Normocephalic. EYES: Normal reaction of pupils, equal size. NOSE: Clear with pink turbinates. THROAT: No erythema or exudates. NECK: No masses, no JVD. CHEST: No chest wall deformity. LUNGS: Equal air entry with crackles in the bilateral posterior bases more so on the left. CVS: S1 and S2 normal with no audible murmur, regular rhythm. ABDOMEN: No hepatosplenomegaly, normal bowel sounds, no guarding or rigidity. SPINE: No scoliosis or deformity SKIN: No rashes CENTRAL NERVOUS SYSTEM: No focal deficits, tone is normal in all 4 extremities. EXTREMITIES: There is trace peripheral edema. No clubbing, no cyanosis. Peripheral pulses are intact. Results - Laboratory Findings CBC and BMP: 11/26/17 08:34 11/26/17 08:34 PT/INR, D-dimer PT 12.0 sec (9.0-12.0) 11/24/17 14:45 INR 1.3 (<1.2) H 11/24/17 14:45 Abnormal lab findings: Abnormal Labs 11/24/17 11/24/17 11/24/17 14:45 14:45 14:45 WBC 18.9 H Hgb MCHC Neutrophils # 17.7 H Lymphocytes # 0.4 L INR 1.3 H Carbon Dioxide BUN 40 H Creatinine 1.30 H Glucose 169 H POC Glucose (mg/dL) Hemoglobin A1c AST 12 L Urine Appearance Urine Protein Urine Blood Ur Leukocyte Esterase Urine RBC Urine WBC Urine WBC Clumps Urine Bacteria Hyaline Casts Urine Mucus 11/24/17 11/24/17 11/25/17 14:45 20:42 05:20 WBC Hgb MCHC Neutrophils # Lymphocytes # INR Carbon Dioxide BUN Creatinine Glucose POC Glucose (mg/dL) 133 H Hemoglobin A1c 6.7 H AST Urine Appearance Cloudy H Urine Protein 1+ H Urine Blood Small H Ur Leukocyte Esterase Large H Urine RBC 22 H Urine WBC 101 H Urine WBC Clumps Few H Urine Bacteria Occasional H Hyaline Casts 8 H Urine Mucus Rare H 11/25/17 11/25/17 11/25/17 06:47 11:57 11:57 WBC 22.9 H Hgb MCHC 30.8 L Neutrophils # 21.8 H Lymphocytes # 0.4 L INR Carbon Dioxide 20 L BUN 56 H Creatinine 2.12 H Glucose 215 H POC Glucose (mg/dL) 163 H Hemoglobin A1c AST Urine Appearance Urine Protein Urine Blood Ur Leukocyte Esterase Urine RBC Urine WBC Urine WBC Clumps Urine Bacteria Hyaline Casts Urine Mucus 11/25/17 11/25/17 11/25/17 12:05 16:41 20:47 WBC Hgb MCHC Neutrophils # Lymphocytes # INR Carbon Dioxide BUN Creatinine Glucose POC Glucose (mg/dL) 210 H 277 H 234 H Hemoglobin A1c AST Urine Appearance Urine Protein Urine Blood Ur Leukocyte Esterase Urine RBC Urine WBC Urine WBC Clumps Urine Bacteria Hyaline Casts Urine Mucus 11/26/17 11/26/17 11/26/17 07:23 08:34 08:34 WBC 14.3 H Hgb 11.1 L MCHC 29.9 L Neutrophils # 13.3 H Lymphocytes # 0.4 L INR Carbon Dioxide 21 L BUN 67 H Creatinine 1.58 H Glucose 248 H POC Glucose (mg/dL) 191 H Hemoglobin A1c AST Urine Appearance Urine Protein Urine Blood Ur Leukocyte Esterase Urine RBC Urine WBC Urine WBC Clumps Urine Bacteria Hyaline Casts Urine Mucus 11/26/17 11:29 WBC Hgb MCHC Neutrophils # Lymphocytes # INR Carbon Dioxide BUN Creatinine Glucose POC Glucose (mg/dL) 234 H Hemoglobin A1c AST Urine Appearance Urine Protein Urine Blood Ur Leukocyte Esterase Urine RBC Urine WBC Urine WBC Clumps Urine Bacteria Hyaline Casts Urine Mucus - Diagnostic Findings Chest x-ray: image reviewed Assessment and Plan Assessment: Impression: #1 Acute hypoxic respiratory failure secondary to suspected left lower lobe pneumonia. #2 Urinary tract infection. #3 Acute renal failure #4 Hypertension. #5 History of depression. Plan: The patient was seen and evaluated by Dr. Boogie. Her chest x-ray and labs were reviewed. We'll continue with her current medications including DuoNeb inhalations 4 times a day and when necessary, IV Solu-Medrol, antibiotics in the form of ceftriaxone and azithromycin. We'll obtain a two-dimensional echocardiogram to rule out any significant left ventricular systolic dysfunction. He is diuresing well. She is currently in a negative balance. We will continue to follow and make further recommendations based on her clinical status. I, the cosigning physician, performed a history & physical examination of the patient. Lungs sounds crackles in the bilateral posterior bases left greater than right.. Maintaining good O2 saturations in the 90s on 8 L high flow nasal cannula I discussed the assessment and plan of care with my nurse practitioner, Betsy Ho. I attest to the above note as dictated by her. Time with Patient: Greater than 30
[2017-11-26] MEDS: AZITHROMYCIN 500 MG TAB PO SCH (17:04)
[2017-11-26] MEDS: IPRATROPIUM-ALBUTEROL 3 ML NEB INHALATION SCH ×2 (17:15→20:38)
[2017-11-26 17:33] LABS: Glucose,Whole Blood 212 mg/dL (75-99)
[2017-11-26 17:33] LABS: Glucose,Whole Blood 479 mg/dL (75-99)
[2017-11-26 20:43] LABS: Glucose,Whole Blood 203 mg/dL (75-99)
[2017-11-26] MEDS: ASPIRIN 81 MG PO SCH (20:43)
--- NOTE | 2017-11-26 21:10 | PN ---
PROGRESS NOTE DATE OF SERVICE: 11/26/2017. BRIEF HISTORY: Patient is an 87-year-old female patient who resides at an assisted Living Facility, admitted to the hospital with acute hypoxemic respiratory failure secondary to left lower lobe pneumonia. The patient is seen in the room. She is awake and alert , in no acute distress. Vital signs temperature of 96.7, pulse 84, respiration 18, O2 saturation 94%. Blood pressure 114/59. HEENT: Atraumatic, normocephalic. Pupils equal and reactive to light. Extraocular movements intact. Buccal mucosa is moist. Neck is supple. No goiter or lymphadenopathy. JVD is negative. No carotid bruit heard. Respiratory system: Lungs positive crackle by bilateral bases with scattered rhonchi, more so on the left side, but fair air entry. Cardiovascular: Heart is regular rate and rhythm without any murmurs or gallop rhythm. Abdomen/GI abdomen is soft, nontender, nondistended. No guarding or rigidity. No organomegaly. Bowel sounds are positive. Extremities no edema clubbing or cyanosis. Pulses are palpable 2+. Central nervous system cranial nerves 2-12 are grossly intact. No gross motor sensory deficits. Skin without any rashes or pigmentation. Musculoskeletal: Patient moves all 4 extremities. No gross joint swelling or deformity. Psychiatric: The patient has a stable affect and mood. Fair judgment. LAB: CBC, white blood count of 14.3, hemoglobin 11.1, hematocrit 37.1, and platelet count of 156. Chemical profile sodium 140, potassium 4.2, chloride 104, bicarb 29, BUN of 67, creatinine of 1.58, and glucose of 248. ASSESSMENT: 1. Acute hypoxemic respiratory failure secondary to left lower lobe pneumonia. 2. Left lower lobe pneumonia. 3. Acute renal failure. 4. Dehydration. 5. Acute upper back pain most likely musculoskeletal. 6. Hypertension. 7. Osteoarthritis. 8. Leukocytosis secondary to infection. PLAN: The patient's hypoxemia has improved. Patient remains on IV ceftriaxone and Zithromax and DuoNeb inhalations 4 times a day are continued. Patient remains on IV Solu- Medrol and is treating well. Will plan to monitor electrolytes, CBC, and renal function. The patient is given symptomatic treatment for musculoskeletal upper back pain, possibly secondary to coughing. Pulmonary consultation is in place and is recommending a 2D echocardiogram and which is ordered and pending. We will continue current management. Further recommendations after workup is completed. MMODL / IJN: [id number] / SARAH
[2017-11-27] MEDS: methylPREDNISolone SOD SUCCI 125 MG/2 ML VIAL IV SCH ×2 (06:14→12:57)
[2017-11-27] MEDS: IPRATROPIUM-ALBUTEROL 3 ML NEB INHALATION SCH ×4 (07:11→19:18)
[2017-11-27 07:26] LABS: Glucose,Whole Blood 155 mg/dL (75-99)
[2017-11-27] MEDS: busPIRone HCl 5 MG TAB PO SCH ×2 (07:57→21:19)
[2017-11-27] MEDS: amLODIPine 5 MG TAB PO SCH (07:57)
[2017-11-27] MEDS: INSULIN ASPART 100 UNIT/ML 1 ML 10 ML VIAL SQ SCH ×4 (07:58→21:37)
[2017-11-27] MEDS: cefTRIAXone IN SWFI 1,000 MG/10 ML SYRINGE IVP SCH ×2 (07:59→21:19)
[2017-11-27 10:32] LABS: Basophils % (A) 0 %; Eosinophils % (A) 0 %; HCT 38.2 % (34.0-46.0); HGB 11.6 gm/dL (11.4-16.0); Hypochromasia Slight; Lymphocytes # (A) 0.4 k/uL (1.0-4.8); Lymphocytes % (A) 3 %; MCH 29.2 pg (25.0-35.0); MCHC 30.5 g/dL (31.0-37.0); MCV 95.7 fL (80.0-100.0); Mean Platelet Volume 9.5; Monocytes # (A) 0.4 k/uL (0-1.0); Monocytes % (A) 4 %; Neutrophils % (A) 93 %; Platelet Count 164 k/uL (150-450); RBC 3.99 m/uL (3.80-5.40); WBC 11.9 k/uL (3.8-10.6)
[2017-11-27 10:39] LABS: Anion Gap 15 mmol/L; Blood Urea Nitrogen 53 mg/dL (7-17); Calcium 9.2 mg/dL (8.4-10.2); Carbon Dioxide 23 mmol/L (22-30); Chloride 104 mmol/L (98-107); Glucose 291 mg/dL (74-99); Potassium 3.4 mmol/L (3.5-5.1); Sodium 142 mmol/L (137-145)
[2017-11-27 11:42] LABS: Glucose,Whole Blood 261 mg/dL (75-99)
--- NOTE | 2017-11-27 11:42 | ECHOF ---
Referral Reason:CHF MEASUREMENTS -------- HEIGHT: 149.9 cm WEIGHT: 74.8 kg BP: 120/71 RVIDd: 3.0 cm (< 3.3) IVSd: 0.7 cm (0.6 - 1.1) LVIDd: 4.3 cm (3.9 - 5.3) LVPWd: 1.0 cm (0.6 - 1.1) IVSs: 1.2 cm LVIDs: 3.1 cm LVPWs: 1.7 cm LAESV Index (A-L): 17.63 ml/m Ao Diam: 2.8 cm (2.0 - 3.7) AV Cusp: 1.3 cm (1.5 - 2.6) LA Diam: 4.0 cm (2.7 - 3.8) MV E Zoran: 1.08 m/s MV DecT: 266 ms MV A Zoran: 1.44 m/s MV E/A Ratio: 0.75 AV maxP.50 mmHg AV meanP.83 mmHg RAP: 5.00 mmHg RVSP: 49.44 mmHg FINDINGS -------- Sinus rhythm. This was a technically adequate study. The left ventricular size is normal. Left ventricular wall thickness is normal. Overall left vent ricular systolic function is normal with, an EF between 55 - 60 %. The right ventricle is mildly enlarged. Normal LA size by volume 22+/-6 ml/m2. RA appears enlarged. Aortic valve is trileaflet and is mildly thickened. There is no evidence of aortic regurgitation. There is mild aortic stenosis present. Peak/mean gradient across the Aortic Valve is 20.50mmHg / 1 0.83mmHg. The mitral valve leaflets are mildly thickened. There is trace to mild mitral regurgitation. Mild tricuspid regurgitation present. There is mild pulmonary hypertension. The right ventricular systolic pressure, as measured by Doppler, is 49.44mmHg. Trace/mild (physiologic) pulmonic regurgitation. The aortic root size is normal. IVC Not well visulized. The pericardium is normal. There is no pericardial effusion. CONCLUSIONS -------- 1. Sinus rhythm. 2. This was a technically adequate study. 3. The left ventricular size is normal. 4. Left ventricular wall thickness is normal. 5. Overall left ventricular systolic function is normal with, an EF between 55 - 60 %. 6. The right ventricle is mildly enlarged. 7. Normal LA size by volume 22+/-6 ml/m2. 8. RA appears enlarged. 9. There is mild aortic stenosis present. 10. Peak/mean gradient across the Aortic Valve is 20.50mmHg / 10.83mmHg. 11. The mitral valve leaflets are mildly thickened. 12. There is trace to mild mitral regurgitation. 13. Mild tricuspid regurgitation present. 14. There is mild pulmonary hypertension. 15. The right ventricular systolic pressure, as measured by Doppler, is 49.44mmHg. 16. Trace/mild (physiologic) pulmonic regurgitation. 17. The aortic root size is normal. 18. IVC Not well visulized. 19. There is no pericardial effusion. NUMEROLOGIST: Michael Simmons RDCS
--- NOTE | 2017-11-27 11:59 | CDI ---
UTI not related to Catheter Last Revision, October 2017 Documentation Clarification Form Date: 11/27/2017 11:47:00 AM From: Jocelin Fields RN, CCDS Admit Date: 11/24/2017 4:18:00 PM Patient Name: Vicki Cabrera Visit Number: [id number] ATTENTION: The Clinical Documentation Specialists (CDI) and [facility] Coding Staff appreciate your assistance in clarifying documentation. Please respond to the clarification below the line at the bottom and electronically sign. The CDI & [facility] Coding staff will review the response and follow-up if needed. Please note: Queries are made part of the Legal Health Record. If you have any questions, please contact the author of this message via ITS. Dr. Rogelio Spencer A diagnosis of UTI has been documented in the Pulmonary Consult . History/Risk factors: Pneumonia, acute respiratory failure, bladder suspension Clinical Indicators Per documentation in the Nursing assessment an indwelling Ramos catheter was inserted 11/24 @ 1911 per A-team Protocol. 11/25 @ 0520 Urinalysis: Cloudy, +1 protein, small blood, large leukocyte esterase, RBC 22, WBC 101, WBC Clumps few, Occasional bacteria, 8 Hyaline casts , rare mucus Urine culture: not done Lab results: WBC 18.9/22.9/14.3/11.9 Treatment: Rocephin 1 gm IVP Q 12 hrs In your professional opinion, can you please clarify the etiology of the UTI, if known and if it was POA? UTI r/t Ramos catheter UTI not related to catheter Other condition, please specify Unable to determine If an infective organism is present, please specify cause and effect relationship if applicable. Please continue to document in your progress notes and discharge summary in order to capture severity of illness and risk of mortality. Include clinical findings that support your diagnosis. MTDD
[2017-11-27] MEDS ORDERED: POTASSIUM CHLORIDE ORAL LIQUID 40 MEQ/30 ML CUP PO ONE (14:00)
--- NOTE | 2017-11-27 16:08 | P.PN ---
<Kim Quinn M - Last Filed: 11/27/17 15:52> Subjective Progress Note Date: 11/27/17 Principal diagnosis: Acute hypoxic respiratory failure secondary to suspected left lower lobe pneumonia This is a very pleasant 87-year-old female patient who follows with Dr. Peace as her primary care physician. She resides at [facility]. She has a history of hypertension, depression. She has a very remote history of smoking and quit in the early 1970s. She did smoke for several years at 1-2 packs per day prior. She denies being on inhalers or any oxygen in the outpatient setting. She has somewhat of a poor historian. She is unclear as to why she is here. She does state that her daughter was worried about her. She had been having some increasing shortness of breath, cough and congestion. She denies any chest pain, palpitations or dizziness. She denied any nausea, vomiting or diarrhea. Her chest x-ray did reveal some infiltrate of the left lower lobe. Culture reveals no growth to date. White count 14.3, hemoglobin 11.1, creatinine 1.58 and she has been afebrile. Troponin negative. ProBNP 276. Influenza screen negative. She is requiring high FiO2 currently at 8 L of high flow to maintain O2 saturations in the 90s. No tachycardia, no tachypnea, hemodynamically stable. She has been initiated on bronchodilators, IV Solu-Medrol, ceftriaxone and azithromycin. On 11/27/2017 she seen in follow-up, sitting up in the chair, on 8 L per high flow nasal cannula with O2 sat between 92-94%. A bile, vital signs are stable, lung sounds are positive for coarse inspiratory crackles over left lower lobe, and some limited crackles over the right lower base as well. Today's lab work was reviewed, WBC is in a downward trend and is down to 11.9, hemoglobin is 11.6 , potassium is 3.4 this is being corrected, BUN is 53, creatinine 0.88. Cultures remain negative at the 48 hour paul. No significant sputum production. Ration is currently on Zithromax and Rocephin, nebulized treatments , and IV Solu-Medrol. We'll obtain repeat asked x-ray in the morning. Objective - Vital Signs Vital signs: Vital Signs Temp 96.5 F L 11/27/17 15:00 Pulse 83 01/24/18 15:00 Resp 16 11/27/17 15:00 BP 134/63 11/27/17 15:00 Pulse Ox 98 11/27/17 15:00 Intake & Output 11/26/17 11/27/17 11/27/17 18:59 06:59 18:59 Output Total 700 Balance -700 Output: Urine 700 Other: Voiding Method Indwelling Catheter # Voids 1 3 2 - Exam GENERAL EXAM: Alert, active, comfortable in no apparent distress. HEAD: Normocephalic. EYES: Normal reaction of pupils, equal size. NOSE: Clear with pink turbinates. THROAT: No erythema or exudates. NECK: No masses, no JVD. CHEST: No chest wall deformity. LUNGS: Equal air entry with extensive inspiratory crackles over left lower base , and some limited crackles over right lower base CVS: S1 and S2 normal with no audible murmur, regular rhythm. ABDOMEN: No hepatosplenomegaly, normal bowel sounds, no guarding or rigidity. SPINE: No scoliosis or deformity SKIN: No rashes CENTRAL NERVOUS SYSTEM: No focal deficits, tone is normal in all 4 extremities. EXTREMITIES: There is trace peripheral edema. No clubbing, no cyanosis. Peripheral pulses are intact. - Labs CBC & Chem 7: 11/27/17 09:02 11/27/17 09:02 Labs: Abnormal Lab Results - Last 24 Hours (Table) 11/26/17 11/26/17 11/26/17 Range/Units 17:19 17:20 20:42 WBC (3.8-10.6) k/uL MCHC (31.0-37.0) g/dL Neutrophils # (1.3-7.7) k/uL Lymphocytes # (1.0-4.8) k/uL Potassium (3.5-5.1) mmol/L BUN (7-17) mg/dL Glucose (74-99) mg/dL POC Glucose (mg/dL) 479 H 212 H 203 H (75-99) mg/dL 11/27/17 11/27/17 11/27/17 Range/Units 07:09 09:02 09:02 WBC 11.9 H (3.8-10.6) k/uL MCHC 30.5 L (31.0-37.0) g/dL Neutrophils # 11.0 H (1.3-7.7) k/uL Lymphocytes # 0.4 L (1.0-4.8) k/uL Potassium 3.4 L (3.5-5.1) mmol/L BUN 53 H (7-17) mg/dL Glucose 291 H (74-99) mg/dL POC Glucose (mg/dL) 155 H (75-99) mg/dL 11/27/17 Range/Units 11:34 WBC (3.8-10.6) k/uL MCHC (31.0-37.0) g/dL Neutrophils # (1.3-7.7) k/uL Lymphocytes # (1.0-4.8) k/uL Potassium (3.5-5.1) mmol/L BUN (7-17) mg/dL Glucose (74-99) mg/dL POC Glucose (mg/dL) 261 H (75-99) mg/dL Microbiology - Last 24 Hours (Table) 11/24/17 14:45 Blood Culture - Preliminary Blood No Growth after 48 hours Assessment and Plan Plan: Assessment: #1 Acute hypoxic respiratory failure secondary to suspected left lower lobe pneumonia. #2 Urinary tract infection. #3 Acute renal failure, improved, on 11/27/2017 BUN is 53, and creatinine is down to 0.88 #4 Hypertension. #5 History of depression. Plan: Continue weaning FiO2, increase activity as tolerated, continue with current antibiotic treatments, Zithromax and Rocephin. We'll decrease the Solu-Medrol down to 40 mg every 8 hours. Obtain 2 view chest x-ray in the morning. We'll continue to follow I performed a history & physical examination of the patient and discussed their management with my nurse practitioner, Kim Quinn. I reviewed the nurse practitioner's note and agree with the documented findings and plan of care. Lung sounds are positive for sensitive crackles over left lower lobe, and some limited crackles over right lower lobe. The findings and the impression was discussed with the patient. I attest to the documentation by the nurse practitioner. Time with Patient: Less than 30 <Carly Boogie - Last Filed: 11/27/17 18:20> Objective - Vital Signs Vital signs: Vital Signs Temp 96.5 F L 11/27/17 15:00 Pulse 78 11/27/17 16:10 Resp 16 11/27/17 16:10 BP 134/63 11/27/17 15:00 Pulse Ox 98 11/27/17 15:58 Intake & Output 11/26/17 11/27/17 11/27/17 18:59 06:59 18:59 Output Total 700 Balance -700 Output: Urine 700 Other: Voiding Method Indwelling Catheter # Voids 1 3 2 - Labs CBC & Chem 7: 11/27/17 09:02 11/27/17 09:02 Labs: Abnormal Lab Results - Last 24 Hours (Table) 11/26/17 11/27/17 11/27/17 Range/Units 20:42 07:09 09:02 WBC 11.9 H (3.8-10.6) k/uL MCHC 30.5 L (31.0-37.0) g/dL Neutrophils # 11.0 H (1.3-7.7) k/uL Lymphocytes # 0.4 L (1.0-4.8) k/uL Potassium (3.5-5.1) mmol/L BUN (7-17) mg/dL Glucose (74-99) mg/dL POC Glucose (mg/dL) 203 H 155 H (75-99) mg/dL 11/27/17 11/27/17 11/27/17 Range/Units 09:02 11:34 17:12 WBC (3.8-10.6) k/uL MCHC (31.0-37.0) g/dL Neutrophils # (1.3-7.7) k/uL Lymphocytes # (1.0-4.8) k/uL Potassium 3.4 L (3.5-5.1) mmol/L BUN 53 H (7-17) mg/dL Glucose 291 H (74-99) mg/dL POC Glucose (mg/dL) 261 H 237 H (75-99) mg/dL Microbiology - Last 24 Hours (Table) 11/24/17 14:45 Blood Culture - Preliminary Blood No Growth after 72 hours Assessment and Plan Plan: Joint evaluation that was done along with the nurse practitioner. I tested above-mentioned formation. The patient is being treated for left lower lobe pneumonia. Leukocytosis improving. The follow-up chest x-ray to be done tomorrow. Continue same antibiotics. Wean FiO2 knowing that the patient is currently on 8 L/m nasal cannula. Will follow.
[2017-11-27 17:16] LABS: Glucose,Whole Blood 237 mg/dL (75-99)
[2017-11-27] MEDS: AZITHROMYCIN 500 MG TAB PO SCH (18:15)
[2017-11-27] MEDS: methylPREDNISolone SOD SUCCI 40 MG/ML 1 ML VIAL IV SCH (18:16)
[2017-11-27 20:49] LABS: Glucose,Whole Blood 246 mg/dL (75-99)
[2017-11-27] MEDS: ASPIRIN 81 MG PO SCH (21:19)
--- NOTE | 2017-11-27 22:41 | PN ---
PROGRESS NOTE DATE OF SERVICE: 11/27/2016 Patient was seen in the room sitting in the bedside chair. Claims the breathing is somewhat improved. Vital signs; temperature 96.5, pulse 83, respirations 16, blood pressure 134/63, O2 saturation 98% on 7 L. General: Patient is awake, alert, oriented x3. She is in no acute distress. HEENT atraumatic, normocephalic. Pupils equal and reactive to light. Extraocular movements intact. Buccal mucosa is fair. Neck is supple. No goiter or lymphadenopathy. JVD is negative. Respiratory: Lungs, the patient has extensive inspiratory crackles both bases. Cardiovascular: Heart is regular rate and rhythm without murmurs or gallop rhythm. Abdomen/GI: Abdomen is soft, nontender, nondistended. Bowel sounds positive. Extremities: There is trace edema. Pulses are palpable 2+. Nervous system: Cranial nerves II-XII grossly intact. No gross motor or sensory deficits. Skin without any rashes or pigmentation. Psychiatric evaluation: Patient has a fair mood and affect. LAB: CBC, white blood count of 11.9, hemoglobin 11.6, hematocrit 38.2, and platelet count of 164. Chemical profile sodium 142, potassium 4, chloride 104, bicarb 23, BUN of 53, creatinine 0.8, glucose 237. ASSESSMENT: 1. Hypokalemia. Will supplement with oral potassium. 2. Hyperglycemia possibly secondary to steroids. The patient's IV steroids have been cut down. We will continue to monitor. Will not make any changes to insulin. 3. Acute hypoxemic respiratory failure. 4. Left lower lobe pneumonia. 5. Urinary tract infection. 6. Acute renal failure. 7. Hypertension. 8. History of depression. PLAN: The patient's oxygen FiO2 is slowly improving. Remains on IV Zithromax and Rocephin. The patient's Solu-Medrol has been decreased to 40 mg every 8 hours. Plan is to obtain a chest x-ray in the morning. We will continue with the Accu-Cheks and adjust insulin if needed. The patient's renal failure is slowly improving. Creatinine is down to normal. Resume all home medications. Discharge planning per Pulmonary recommendations. MMODL / IJN: [id number] / MTDD
[2017-11-28] MEDS: methylPREDNISolone SOD SUCCI 40 MG/ML 1 ML VIAL IV SCH ×2 (00:14→08:09)
[2017-11-28] MEDS: IPRATROPIUM-ALBUTEROL 3 ML NEB INHALATION SCH ×4 (07:45→20:14)
[2017-11-28 07:52] LABS: Glucose,Whole Blood 166 mg/dL (75-99)
[2017-11-28] MEDS: busPIRone HCl 5 MG TAB PO SCH ×2 (08:10→20:21)
[2017-11-28] MEDS: amLODIPine 5 MG TAB PO SCH (08:10)
[2017-11-28] MEDS: LOSARTAN 50 MG TAB PO SCH (08:10)
[2017-11-28] MEDS: INSULIN ASPART 100 UNIT/ML 1 ML 10 ML VIAL SQ SCH ×4 (08:10→21:20)
[2017-11-28] MEDS: cefTRIAXone IN SWFI 1,000 MG/10 ML SYRINGE IVP SCH ×2 (08:10→20:21)
[2017-11-28 11:17] LABS: Anion Gap 17 mmol/L; Blood Urea Nitrogen 38 mg/dL (7-17); Calcium 9.5 mg/dL (8.4-10.2); Carbon Dioxide 23 mmol/L (22-30); Chloride 104 mmol/L (98-107); Glucose 327 mg/dL (74-99); Potassium 3.7 mmol/L (3.5-5.1); Sodium 144 mmol/L (137-145)
--- NOTE | 2017-11-28 11:22 | XR ---
EXAMINATION TYPE: XR chest 2V DATE OF EXAM: 11/28/2017 COMPARISON: 11/25/2017 INDICATION: Left lower lobe pneumonia TECHNIQUE: Frontal and lateral views of the chest are obtained. FINDINGS: The heart size is normal. The pulmonary vasculature is normal. There is left lower lobe infiltrate. This is improved from prior study. Moderate residual remains. Re solving pneumonia is differential. IMPRESSION: 1. Resolving left lower lobe pneumonia with moderate residual. Continued follow-up is recommended.
[2017-11-28 12:40] LABS: Glucose,Whole Blood 316 mg/dL (75-99)
[2017-11-28] MEDS ORDERED: INSULIN ASPART 100 UNIT/ML 1 ML 10 ML VIAL SQ ONE (12:51)
--- NOTE | 2017-11-28 15:59 | P.PN ---
Subjective Progress Note Date: 11/28/17 Principal diagnosis: Acute hypoxic respiratory failure secondary to suspected left lower lobe pneumonia This is a very pleasant 87-year-old female patient who follows with Dr. Peace as her primary care physician. She resides at [facility]. She has a history of hypertension, depression. She has a very remote history of smoking and quit in the early 1970s. She did smoke for several years at 1-2 packs per day prior. She denies being on inhalers or any oxygen in the outpatient setting. She has somewhat of a poor historian. She is unclear as to why she is here. She does state that her daughter was worried about her. She had been having some increasing shortness of breath, cough and congestion. She denies any chest pain, palpitations or dizziness. She denied any nausea, vomiting or diarrhea. Her chest x-ray did reveal some infiltrate of the left lower lobe. Culture reveals no growth to date. White count 14.3, hemoglobin 11.1, creatinine 1.58 and she has been afebrile. Troponin negative. ProBNP 276. Influenza screen negative. She is requiring high FiO2 currently at 8 L of high flow to maintain O2 saturations in the 90s. No tachycardia, no tachypnea, hemodynamically stable. She has been initiated on bronchodilators, IV Solu-Medrol, ceftriaxone and azithromycin. On 11/27/2017 she seen in follow-up, sitting up in the chair, on 8 L per high flow nasal cannula with O2 sat between 92-94%. A bile, vital signs are stable, lung sounds are positive for coarse inspiratory crackles over left lower lobe, and some limited crackles over the right lower base as well. Today's lab work was reviewed, WBC is in a downward trend and is down to 11.9, hemoglobin is 11.6 , potassium is 3.4 this is being corrected, BUN is 53, creatinine 0.88. Cultures remain negative at the 48 hour paul. No significant sputum production. Ration is currently on Zithromax and Rocephin, nebulized treatments , and IV Solu-Medrol. We'll obtain repeat asked x-ray in the morning. On 11/28/2017 she seen in follow-up on medical surgical floor. Improving, denies any distress, lung sounds continue with coarse respiratory crackles over left lower lobe, and much improved on the right. Today's chest x-ray shows resolving left lower lobe pneumonia with moderate residual. FiO2 currently down to 4 L per nasal cannula, with O2 sat 95%.Vitals are stable, afebrile. Today's lab work was reviewed, renal profile continues to improve, B1 is down to 38, creatinine 0.0, no electrode abnormality. Patient is sitting up in the chair, has been ambulating to the bathroom tolerating activity well. Blood culture shows no growth at 72 hour paul. Objective - Vital Signs Vital signs: Vital Signs Temp 96.3 F L 11/28/17 07:00 Pulse 84 11/28/17 11:08 Resp 16 11/28/17 07:00 BP 146/68 11/28/17 07:00 Pulse Ox 94 L 11/28/17 07:00 Intake & Output 11/27/17 11/28/17 11/28/17 18:59 06:59 18:59 Other: # Voids 2 0 2 - Exam GENERAL EXAM: Alert, active, comfortable in no apparent distress. HEAD: Normocephalic. EYES: Normal reaction of pupils, equal size. NOSE: Clear with pink turbinates. THROAT: No erythema or exudates. NECK: No masses, no JVD. CHEST: No chest wall deformity. LUNGS: Equal air entry with extensive inspiratory crackles over left lower base , and some limited crackles over right lower base CVS: S1 and S2 normal with no audible murmur, regular rhythm. ABDOMEN: No hepatosplenomegaly, normal bowel sounds, no guarding or rigidity. SPINE: No scoliosis or deformity SKIN: No rashes CENTRAL NERVOUS SYSTEM: No focal deficits, tone is normal in all 4 extremities. EXTREMITIES: There is trace peripheral edema. No clubbing, no cyanosis. Peripheral pulses are intact. - Labs CBC & Chem 7: 11/27/17 09:02 11/28/17 10:19 Labs: Abnormal Lab Results - Last 24 Hours (Table) 11/27/17 11/27/17 11/28/17 Range/Units 17:12 20:47 07:31 BUN (7-17) mg/dL Glucose (74-99) mg/dL POC Glucose (mg/dL) 237 H 246 H 166 H (75-99) mg/dL 11/28/17 11/28/17 Range/Units 10:19 12:38 BUN 38 H (7-17) mg/dL Glucose 327 H (74-99) mg/dL POC Glucose (mg/dL) 316 H (75-99) mg/dL Microbiology - Last 24 Hours (Table) 11/24/17 14:45 Blood Culture - Preliminary Blood No Growth after 72 hours Assessment and Plan Plan: Assessment: #1 Acute hypoxic respiratory failure secondary to suspected left lower lobe pneumonia. #2 Urinary tract infection. #3 Acute renal failure, improved, on 11/27/2017 BUN is 53, and creatinine is down to 0.88 #4 Hypertension. #5 History of depression. Plan: She is continuously improving, continue weaning FiO2, increase activity as tolerated, continue with current antibiotic treatments, Zithromax and Rocephin. We'll switch to IV Solu-Medrol to prednisone 40 mg daily. Today's chest x- ray shows resolving left lower lobe infiltrate. Anticipate discharge in next 24 hours provided patient continues to improve. I performed a history & physical examination of the patient and discussed their management with my nurse practitioner, Kim Quinn. I reviewed the nurse practitioner's note and agree with the documented findings and plan of care. Lung sounds are positive for sensitive crackles over left lower lobe, and some limited crackles over right lower lobe. The findings and the impression was discussed with the patient. I attest to the documentation by the nurse practitioner. Time with Patient: Less than 30
[2017-11-28 17:24] LABS: Glucose,Whole Blood 178 mg/dL (75-99)
[2017-11-28] MEDS: AZITHROMYCIN 500 MG TAB PO SCH (17:48)
[2017-11-28] MEDS: ASPIRIN 81 MG PO SCH (20:21)
[2017-11-28 20:41] LABS: Glucose,Whole Blood 203 mg/dL (75-99)
[2017-11-28 22:17] VITALS: RESP 18
--- NOTE | 2017-11-28 22:48 | PN ---
PROGRESS NOTE DATE OF SERVICE: 11/28/2017. The patient sitting up at the bed side. Claims her breathing is markedly improved but still has some cough, but he is able to bring up some phlegm. Vital signs: Temperature of 96.3, pulse 84, respirations 16, blood pressure 146 /68, O2 saturation 94%. General examination: Patient is awake, alert, oriented. She is in no acute distress. HEENT: Atraumatic, normocephalic. Pupils equal and reactive to light. Extraocular movements intact. Oral mucosa fair. Neck is supple. No goiter or lymphadenopathy. JVD is negative. Respiratory: The patient has lungs bibasilar crackles with the occasional expiratory wheezes. Cardiovascular: Heart is regular rate and rhythm without any murmurs or gallop rhythm. Abdomen is soft, nontender, nondistended. Bowel sounds positive. Skin is skin is warm, intact, without any rashes. Central nervous cellular: Patient has no gross motor or sensory deficits. Cranial nerves 2-12 grossly intact. Extremities: patient has bilateral trace lower extremity trace edema. Pulses are palpable. LABS: CBC shows white blood count of 11.9, hemoglobin 11.6, hematocrit 38.3, platelet count of 164. Chemical profile sodium 141, potassium 3.7, chloride 104, bicarb 23, BUN 38, creatinine 0.80, and glucose of 327. ASSESSMENT: 1. Acute respiratory failure. 2. Left lower lobe pneumonia. 3. Urinary tract infection. 4. Acute renal failure. 5. Electrolyte imbalance. 6. Hyperglycemia without acidosis. 7. Hypertension. 8. History of depression. The patient remains on IV antibiotics, IV Solu-Medrol, which is gradually being tapered by pulmonology. The patient is now switched to oral prednisone. Repeat chest x -ray shows a resolving left lower lobe infiltrate. The patient renal function electrolytes are stable. All home medications are resumed. Possible discharge in next 24 hours. MMODL / IJN: [id number] / SARAH
[2017-11-29 07:31] LABS: Glucose,Whole Blood 114 mg/dL (75-99)
[2017-11-29] MEDS: IPRATROPIUM-ALBUTEROL 3 ML NEB INHALATION SCH ×3 (07:32→15:21)
[2017-11-29] MEDS: INSULIN ASPART 100 UNIT/ML 1 ML 10 ML VIAL SQ SCH ×2 (07:43→12:16)
[2017-11-29] MEDS: busPIRone HCl 5 MG TAB PO SCH (08:22)
[2017-11-29] MEDS: amLODIPine 5 MG TAB PO SCH (08:22)
[2017-11-29] MEDS: cefTRIAXone IN SWFI 1,000 MG/10 ML SYRINGE IVP SCH (08:22)
[2017-11-29] MEDS: LOSARTAN 50 MG TAB PO SCH (08:22)
[2017-11-29 08:41] LABS: Basophils % (A) 0 %; Eosinophils % (A) 0 %; HCT 40.2 % (34.0-46.0); HGB 12.4 gm/dL (11.4-16.0); Hypochromasia Slight; Lymphocytes % (A) 8 %; MCH 29.2 pg (25.0-35.0); MCHC 30.8 g/dL (31.0-37.0); MCV 94.8 fL (80.0-100.0); Mean Platelet Volume 8.7; Monocytes # (A) 0.7 k/uL (0-1.0); Monocytes % (A) 6 %; Neutrophils # (A) 10.2 k/uL (1.3-7.7); Neutrophils % (A) 84 %; Platelet Count 199 k/uL (150-450); RBC 4.24 m/uL (3.80-5.40); RDW 12.9 % (11.5-15.5); WBC 12.2 k/uL (3.8-10.6)
[2017-11-29 08:56] LABS: Anion Gap 12 mmol/L; Blood Urea Nitrogen 33 mg/dL (7-17); Calcium 9.6 mg/dL (8.4-10.2); Carbon Dioxide 28 mmol/L (22-30); Chloride 105 mmol/L (98-107); Glucose 119 mg/dL (74-99); Potassium 4.5 mmol/L (3.5-5.1); Sodium 145 mmol/L (137-145)
[2017-11-29] MEDS ORDERED: predniSONE 20 MG TAB PO SCH (09:00)
[2017-11-29 11:30] LABS: Glucose,Whole Blood 145 mg/dL (75-99)
[2017-11-29 15:06] VITALS: BP 129/66; TEMP 96.4
[2017-11-29 15:24] VITALS: PULSE 85
--- NOTE | 2017-11-29 15:29 | P.PN ---
Subjective Progress Note Date: 11/29/17 Principal diagnosis: Acute hypoxic respiratory failure secondary to suspected left lower lobe pneumonia This is a very pleasant 87-year-old female patient who follows with Dr. Peace as her primary care physician. She resides at [facility]. She has a history of hypertension, depression. She has a very remote history of smoking and quit in the early 1970s. She did smoke for several years at 1-2 packs per day prior. She denies being on inhalers or any oxygen in the outpatient setting. She has somewhat of a poor historian. She is unclear as to why she is here. She does state that her daughter was worried about her. She had been having some increasing shortness of breath, cough and congestion. She denies any chest pain, palpitations or dizziness. She denied any nausea, vomiting or diarrhea. Her chest x-ray did reveal some infiltrate of the left lower lobe. Culture reveals no growth to date. White count 14.3, hemoglobin 11.1, creatinine 1.58 and she has been afebrile. Troponin negative. ProBNP 276. Influenza screen negative. She is requiring high FiO2 currently at 8 L of high flow to maintain O2 saturations in the 90s. No tachycardia, no tachypnea, hemodynamically stable. She has been initiated on bronchodilators, IV Solu-Medrol, ceftriaxone and azithromycin. On 11/27/2017 she seen in follow-up, sitting up in the chair, on 8 L per high flow nasal cannula with O2 sat between 92-94%. A bile, vital signs are stable, lung sounds are positive for coarse inspiratory crackles over left lower lobe, and some limited crackles over the right lower base as well. Today's lab work was reviewed, WBC is in a downward trend and is down to 11.9, hemoglobin is 11.6 , potassium is 3.4 this is being corrected, BUN is 53, creatinine 0.88. Cultures remain negative at the 48 hour paul. No significant sputum production. Ration is currently on Zithromax and Rocephin, nebulized treatments , and IV Solu-Medrol. We'll obtain repeat asked x-ray in the morning. On 11/28/2017 she seen in follow-up on medical surgical floor. Improving, denies any distress, lung sounds continue with coarse respiratory crackles over left lower lobe, and much improved on the right. Today's chest x-ray shows resolving left lower lobe pneumonia with moderate residual. FiO2 currently down to 4 L per nasal cannula, with O2 sat 95%.Vitals are stable, afebrile. Today's lab work was reviewed, renal profile continues to improve, B1 is down to 38, creatinine 0.0, no electrode abnormality. Patient is sitting up in the chair, has been ambulating to the bathroom tolerating activity well. Blood culture shows no growth at 72 hour paul. On 11/29/2017 patient continues to improve. She has ambulated in the hallway, tolerated very well. On room air her O2 sat is between 90-92%. She's afebrile , vital signs are stable. Blood cultures are negative. Lung sounds are positive for left lower lobe expiratory crackles, clear on the right. Patient has not had a 90 sputum production, is much improved in terms of dyspnea. Today 's lab work has been reviewed, WBCs 12.2, hemoglobin is 12 point no electrolyte abnormality, BUN is 33, creatinine 0.78. Patient is stable for discharge home from pulmonary standpoint. Objective - Vital Signs Vital signs: Vital Signs Temp 96.4 F L 11/29/17 15:00 Pulse 83 11/29/17 15:00 Resp 18 11/29/17 15:00 BP 129/66 11/29/17 15:00 Pulse Ox 90 L 11/29/17 15:00 Intake & Output 11/28/17 11/29/17 11/29/17 18:59 06:59 18:59 Other: # Voids 2 2 3 - Exam GENERAL EXAM: Alert, active, comfortable in no apparent distress. HEAD: Normocephalic. EYES: Normal reaction of pupils, equal size. NOSE: Clear with pink turbinates. THROAT: No erythema or exudates. NECK: No masses, no JVD. CHEST: No chest wall deformity. LUNGS: Equal air entry with extensive inspiratory crackles over left lower base , and clear on the right. CVS: S1 and S2 normal with no audible murmur, regular rhythm. ABDOMEN: No hepatosplenomegaly, normal bowel sounds, no guarding or rigidity. SPINE: No scoliosis or deformity SKIN: No rashes CENTRAL NERVOUS SYSTEM: No focal deficits, tone is normal in all 4 extremities. EXTREMITIES: There is trace peripheral edema. No clubbing, no cyanosis. Peripheral pulses are intact. - Labs CBC & Chem 7: 11/29/17 08:02 11/29/17 08:02 Labs: Abnormal Lab Results - Last 24 Hours (Table) 11/28/17 11/28/17 11/29/17 Range/Units 17:22 20:41 07:21 WBC (3.8-10.6) k/uL MCHC (31.0-37.0) g/dL Neutrophils # (1.3-7.7) k/uL BUN (7-17) mg/dL Glucose (74-99) mg/dL POC Glucose (mg/dL) 178 H 203 H 114 H (75-99) mg/dL 11/29/17 11/29/17 11/29/17 Range/Units 08:02 08:02 11:28 WBC 12.2 H (3.8-10.6) k/uL MCHC 30.8 L (31.0-37.0) g/dL Neutrophils # 10.2 H (1.3-7.7) k/uL BUN 33 H (7-17) mg/dL Glucose 119 H (74-99) mg/dL POC Glucose (mg/dL) 145 H (75-99) mg/dL Microbiology - Last 24 Hours (Table) 11/24/17 14:45 Blood Culture - Preliminary Blood No Growth after 96 hours Assessment and Plan Plan: Assessment: #1 Acute hypoxic respiratory failure secondary to suspected left lower lobe pneumonia, resolved, today her pulse ox is 90-92% on room air. #2 Urinary tract infection. #3 Acute renal failure, improved, on 11/27/2017 BUN is 53, and creatinine is down to 0.88. Her renal profile continues to come on 11/29/1999 B1 is 33, creatinine 0.78. #4 Hypertension. #5 History of depression. Plan: Patient is continuing to improve. Tolerating ambulation, she is not requiring any oxygen. No worsening dyspnea, cough or chest congestion or sputum production. From pulmonary standpoint she is stable for discharge home today finish her Zithromax, Ceftin, prednisone taper. Continue on maintenance inhalers and nebulized treatments. Follow-up, in the office with Dr. Tomas in one week I performed a history & physical examination of the patient and discussed their management with my nurse practitioner, Kim Quinn. I reviewed the nurse practitioner's note and agree with the documented findings and plan of care. Lung sounds are positive for sensitive crackles over left lower lobe, and clear over right lower lobe. The findings and the impression was discussed with the patient. I attest to the documentation by the nurse practitioner. Time with Patient: Less than 30
[2017-11-29 15:48] VITALS: BMI 33.3
--- NOTE | 2017-12-16 07:25 | DS ---
DISCHARGE SUMMARY DATE OF ADMISSION: 11/24/2017 DATE OF DISCHARGE: 11/29/2017 ADMISSION DIAGNOSES: Admission diagnoses on the patient was: 1. Community-acquired pneumonia. 2. Acute renal injury. 3. Dehydration. 4. Hypertension. 5. Osteoarthritis. BRIEF HISTORY ON THE PATIENT: An 87-year-old female patient who presented to the ED with a complaint of feeling sick for 3 days with high fevers and cough. Which was productive in nature with difficulty breathing. In the ED, patient was diagnosed with community-acquired pneumonia and was admitted for further treatment. PAST MEDICAL HISTORY: 1. Hypertension. 2. Osteoarthritis. 3. Glaucoma. MEDICATIONS: The patient is on: 1. Celexa 20 mg daily. 2. Aspirin 81 mg daily. 3. Hydrochlorothiazide 25 mg daily. 4. Losartan 100 mg daily. 5. Amlodipine 5 mg daily. 6. BuSpar 5 mg daily. PHYSICAL EXAMINATION: On physical examination: CONSTITUTIONAL: Patient was awake, alert, in no acute distress. VITAL SIGNS: Temperature 99.2, pulse 79, respirations 20, blood pressure 107/52 , O2 saturation 92%. HEENT: Atraumatic, normocephalic. Pupils equal and react to light. Extraocular movements intact. Buccal mucosa moist. NECK: Supple. No goiter or lymphadenopathy. JVD negative. No carotid bruit heard. LUNGS: Decreased breath sounds. Positive rales, rhonchi and wheezing. HEART: Regular rate and rhythm without any murmurs or gallop rhythm. ABDOMEN: Soft, nontender, nondistended. Bowel sounds positive. EXTREMITIES: No edema, clubbing or cyanosis. NEUROLOGICAL EXAMINATION: Cranial nerves 2 through 12 grossly intact. No gross motor or sensory deficit. LABS: CBC, white blood count 18.9, hemoglobin 12.3, hematocrit 38.4 and platelet 154. Chemical profile sodium 140, potassium 4.2, chloride 103, bicarb 27, BUN 40, creatinine 1.3, and glucose 169. BRIEF HOSPITAL COURSE: The patient was admitted to telemetry, started on IV Rocephin and Zithromax. IV fluids were continued. Renal function I and Os and electrolytes were monitored closely. The patient did show improvement to this treatment. Pulmonary service was consulted and they recommended continuing current treatment. The patient's renal failure and respiratory failure slowly improved. The patient was continued on IV Solu- Medrol and antibiotics, which were switched to oral upon improvement. Repeat chest x-ray was recommended by pulmonary service, which did show improvement in the infiltrate. The patient did not have any further complications after that. She was discharged home on tapering dose of steroids and oral antibiotics. She was recommended to follow up with the primary care physician and pulmonary service. DISCHARGE MEDICATIONS: 1. Zithromax 500 mg daily for 3 days. 2. Ceftin 500 mg b.i.d. for 5 days. 3. Prednisone on tapering doses. 4. Aspirin 81 mg daily. 5. Celexa 20 mg q.h.s. 6. Hydrochlorothiazide 25 mg daily. 7. Losartan 100 mg daily. 8. Amlodipine 5 mg daily. 9. BuSpar 5 mg b.i.d. MMDENA / LENAN: [id number] / MTDD
== END 2017-11-29 16:45 | disposition home health service (06) | DRG 177 ==
LOC: EC 14:17 → 4MS4W 16:18
PROVIDERS: ADMIT Hospitalist; ATTEND Internal Medicine
DX: J15.6 Pneumonia due to other Gram-negative bacteria (principal); J96.01 Acute respiratory failure with hypoxia; N17.9 Acute kidney failure, unspecified; N39.0 Urinary tract infection, site not specified; E87.70 Fluid overload, unspecified; E86.0 Dehydration; E87.6 Hypokalemia; F32.9 Major depressive disorder, single episode, unspecified; F41.9 Anxiety disorder, unspecified; H40.9 Unspecified glaucoma; I10 Essential (primary) hypertension; M19.90 Unspecified osteoarthritis, unspecified site; Z79.899 Other long term (current) drug therapy; Z82.49 Family history of ischemic heart disease and other diseases of the circulatory system; Z87.891 Personal history of nicotine dependence; Z90.710 Acquired absence of both cervix and uterus; Z79.82 Long term (current) use of aspirin; R73.9 Hyperglycemia, unspecified; T38.0X5A Adverse effect of glucocorticoids and synthetic analogues, initial encounter
CPT/HCPCS: 36415; 71045; 71046; 80048; 80053; 81001; 82550; 82553; 83036; 83605; 83735; 83880; 84484; 85025; 85610; 85730; 87040; 87502; 93005; 93306; 94640; 94760; 96361; 96374; 99285

== ENCOUNTER 2019-01-22 18:16 | Inpatient (IN) | payer MEDICARE, OTHER ==
[2019-01-22] MEDS ORDERED: SODIUM CHLORIDE 0.9% 500 ML 500 ML IV STA ×2 (18:42→21:09)
[2019-01-22 18:45] LABS: Basophils % (A) 0 %; Eosinophils # (A) 0.1 k/uL (0-0.7); Eosinophils % (A) 1 %; HCT 41.1 % (34.0-46.0); HGB 12.6 gm/dL (11.4-16.0); Lymphocytes # (A) 0.8 k/uL (1.0-4.8); Lymphocytes % (A) 9 %; MCH 28.6 pg (25.0-35.0); MCHC 30.7 g/dL (31.0-37.0); Mean Platelet Volume 9.1; Monocytes # (A) 0.6 k/uL (0-1.0); Monocytes % (A) 6 %; Neutrophils # (A) 7.8 k/uL (1.3-7.7); Neutrophils % (A) 83 %; Platelet Count 113 k/uL (150-450); RBC 4.42 m/uL (3.80-5.40); RDW 13.5 % (11.5-15.5); WBC 9.4 k/uL (3.8-10.6)
[2019-01-22 18:53] LABS: INR 1.2 (<1.2); Partial Thromboplastin Time 24.5 sec (22.0-30.0); Prothrombin Time 12.6 sec (9.0-12.0)
--- NOTE | 2019-01-22 19:01 | XR ---
EXAMINATION TYPE: XR chest 2V DATE OF EXAM: 01/22/2019 COMPARISON: 12/12/2017 HISTORY: Pneumonia. Chest pain TECHNIQUE: Frontal and lateral views of the chest are obtained. FINDINGS: There is evidence of some infiltrate in the medial right upper lobe. There is slight eleva jason right diaphragm. Left lung is fairly clear. There are small linear density left midlung. There is no heart failure. Bony thorax is intact. IMPRESSION: There is new mild pneumonic infiltrate medial right upper lobe compared to old exam. Sli ghtly elevated right diaphragm could relate to partial paralysis.
[2019-01-22 19:03] LABS: Albumin 3.6 g/dL (3.5-5.0); Calcium 8.9 mg/dL (8.4-10.2); Magnesium 1.4 mg/dL (1.6-2.3); Potassium 3.6 mmol/L (3.5-5.1); Total Bilirubin 0.6 mg/dL (0.2-1.3); Total Protein 6.4 g/dL (6.3-8.2)
--- NOTE | 2019-01-22 20:08 | ED ---
Dizziness HPI - General Chief Complaint: Dizziness Stated Complaint: weakness/dizziness Time Seen by Provider: 01/22/19 18:16 Source: patient, EMS, RN notes reviewed Mode of arrival: EMS Limitations: physical limitation - History of Present Illness Initial Comments: This 88-year-old female who was brought in by EMS due to some dizziness and nausea. She was brought in by EMS she was given 4 mg of Zofran and route she states she feels dry and thirsty there was concern for apparent evidence of A. fib on evaluation the patient by EMS patient does not complain of any chest pain fevers chills or sweats no abdominal or chest pain no dysuria no hematuria. She is a relatively poor historian at this time. MD Complaint: dizziness, other - Related Data Home Medications Medication Instructions Recorded Confirmed Citalopram Hydrobromide [CeleXA] 20 mg PO HS 10/02/16 01/22/19 Aspirin EC [Ecotrin Low Dose] 81 mg PO HS 11/24/17 01/22/19 Hydrochlorothiazide [Hydrodiuril] 25 mg PO DAILY 11/24/17 01/22/19 Losartan Potassium 100 mg PO DAILY 11/24/17 01/22/19 amLODIPine [Norvasc] 5 mg PO DAILY 11/24/17 01/22/19 busPIRone HCl [Buspar] 5 mg PO BID 11/24/17 01/22/19 Levofloxacin 750 mg PO DAILY 01/22/19 01/22/19 Allergies Allergy/AdvReac Type Severity Reaction Status Date / Time codeine AdvReac Nausea & Verified 01/22/19 18:39 Vomiting Review of Systems ROS Statement: Those systems with pertinent positive or pertinent negative responses have been documented in the HPI. ROS Other: All systems not noted in ROS Statement are negative. Past Medical History Past Medical History: Hypertension, Osteoarthritis (OA) Additional Past Medical History / Comment(s): HX OF GLAUCOMA, HX OF CELLULITIS IN LEGS & FEET OCT 2016., BLOOD IN STOOL. History of Any Multi-Drug Resistant Organisms: None Reported Past Surgical History: Bladder Surgery, Hysterectomy, Tonsillectomy Additional Past Surgical History / Comment(s): bunionectomy rosa feet, laser eye sx for glaucoma, plastic sx on nose, bladder suspension, egd/colonoscopy. Past Anesthesia/Blood Transfusion Reactions: No Reported Reaction Past Psychological History: Anxiety, Depression Smoking Status: Former smoker Past Alcohol Use History: Occasional Past Drug Use History: None Reported - Past Family History Mother Family Medical History: Coronary Artery Disease (CAD) Additional Family Medical History / Comment(s): heart problems Father Additional Family Medical History / Comment(s): anuerysm General Exam - General Exam Comments Initial Comments: This a well-developed well-nourished awake alert but slow to respond female. Patient does states she's not sure why she is here Limitations: physical limitation General appearance: alert, in no apparent distress Head exam: Present: atraumatic, normocephalic, normal inspection Eye exam: Present: normal appearance, PERRL, EOMI. Absent: scleral icterus, conjunctival injection, periorbital swelling ENT exam: Present: mucous membranes dry Neck exam: Present: normal inspection. Absent: tenderness, meningismus, lymphadenopathy Respiratory exam: Present: normal lung sounds bilaterally. Absent: respiratory distress, wheezes, rales, rhonchi, stridor Cardiovascular Exam: Present: regular rate, normal rhythm, normal heart sounds. Absent: systolic murmur, diastolic murmur, rubs, gallop, clicks GI/Abdominal exam: Present: soft, normal bowel sounds. Absent: distended, tenderness, guarding, rebound, rigid Extremities exam: Present: normal inspection, full ROM, normal capillary refill. Absent: tenderness, pedal edema, joint swelling, calf tenderness Back exam: Present: normal inspection Neurological exam: Present: alert, oriented X3, CN II-XII intact Psychiatric exam: Present: normal affect, normal mood Skin exam: Present: warm, dry, intact, normal color. Absent: rash Course Vital Signs 01/22/19 18:20 Temperature 98.8 F Pulse Rate 70 Respiratory 18 Rate Blood Pressure 131/65 O2 Sat by Pulse 96 Oximetry - Reevaluation(s) Reevaluation #1: 01/22/19 20:07 Further information patient apparently was on Keflex up until the 12th of this month at which time she was switched to Levaquin 750 mg per day. Unclear why. Reevaluation #2: 01/22/19 22:26 I did discuss the findings with patient and family members patient does demonstrate evidence of dehydration and renal insufficiency she will be admitted for IV hydration she'll status hypomagnesemia. EKG Findings - EKG Results: EKG: interpreted by WILLIAM (Sinus rhythm of 68 with occasional PVCs. Interval 144 QRS 134 QT since QTC 480/510 nonspecific interventricular conduction block) Medical Decision Making - Lab Data Result diagrams: 01/22/19 18:30 01/22/19 18:30 Lab Results 01/22/19 01/22/19 01/22/19 Range/Units 18:30 18:30 18:30 WBC 9.4 (3.8-10.6) k/uL RBC 4.42 (3.80-5.40) m/uL Hgb 12.6 (11.4-16.0) gm/dL Hct 41.1 (34.0-46.0) % MCV 93.0 (80.0-100.0) fL MCH 28.6 (25.0-35.0) pg MCHC 30.7 L (31.0-37.0) g/dL RDW 13.5 (11.5-15.5) % Plt Count 113 L (150-450) k/uL Neutrophils % 83 % Lymphocytes % 9 % Monocytes % 6 % Eosinophils % 1 % Basophils % 0 % Neutrophils # 7.8 H (1.3-7.7) k/uL Lymphocytes # 0.8 L (1.0-4.8) k/uL Monocytes # 0.6 (0-1.0) k/uL Eosinophils # 0.1 (0-0.7) k/uL Basophils # 0.0 (0-0.2) k/uL PT 12.6 H (9.0-12.0) sec INR 1.2 H (<1.2) APTT 24.5 (22.0-30.0) sec Sodium 138 (137-145) mmol/L Potassium 3.6 (3.5-5.1) mmol/L Chloride 102 (98-107) mmol/L Carbon Dioxide 27 (22-30) mmol/L Anion Gap 9 mmol/L BUN 37 H (7-17) mg/dL Creatinine 1.40 H (0.52-1.04) mg/dL Est GFR (CKD-EPI)AfAm 39 (>60 ml/min/1.73 sqM) Est GFR (CKD-EPI)NonAf 34 (>60 ml/min/1.73 sqM) Glucose 112 H (74-99) mg/dL Calcium 8.9 (8.4-10.2) mg/dL Magnesium 1.4 L (1.6-2.3) mg/dL Total Bilirubin 0.6 (0.2-1.3) mg/dL AST 17 (14-36) U/L ALT 20 (9-52) U/L Alkaline Phosphatase 47 (38-126) U/L Creatine Kinase 78 (30-135) U/L Troponin I (0.000-0.034) ng/mL Total Protein 6.4 (6.3-8.2) g/dL Albumin 3.6 (3.5-5.0) g/dL Urine Color Urine Appearance (Clear) Urine pH (5.0-8.0) Ur Specific [place] (1.001-1.035) Urine Protein (Negative) Urine Glucose (UA) (Negative) Urine Ketones (Negative) Urine Blood (Negative) Urine Nitrite (Negative) Urine Bilirubin (Negative) Urine Urobilinogen (<2.0) mg/dL Ur Leukocyte Esterase (Negative) 01/22/19 01/22/19 Range/Units 18:30 20:50 WBC (3.8-10.6) k/uL RBC (3.80-5.40) m/uL Hgb (11.4-16.0) gm/dL Hct (34.0-46.0) % MCV (80.0-100.0) fL MCH (25.0-35.0) pg MCHC (31.0-37.0) g/dL RDW (11.5-15.5) % Plt Count (150-450) k/uL Neutrophils % % Lymphocytes % % Monocytes % % Eosinophils % % Basophils % % Neutrophils # (1.3-7.7) k/uL Lymphocytes # (1.0-4.8) k/uL Monocytes # (0-1.0) k/uL Eosinophils # (0-0.7) k/uL Basophils # (0-0.2) k/uL PT (9.0-12.0) sec INR (<1.2) APTT (22.0-30.0) sec Sodium (137-145) mmol/L Potassium (3.5-5.1) mmol/L Chloride (98-107) mmol/L Carbon Dioxide (22-30) mmol/L Anion Gap mmol/L BUN (7-17) mg/dL Creatinine (0.52-1.04) mg/dL Est GFR (CKD-EPI)AfAm (>60 ml/min/1.73 sqM) Est GFR (CKD-EPI)NonAf (>60 ml/min/1.73 sqM) Glucose (74-99) mg/dL Calcium (8.4-10.2) mg/dL Magnesium (1.6-2.3) mg/dL Total Bilirubin (0.2-1.3) mg/dL AST (14-36) U/L ALT (9-52) U/L Alkaline Phosphatase (38-126) U/L Creatine Kinase (30-135) U/L Troponin I <0.012 (0.000-0.034) ng/mL Total Protein (6.3-8.2) g/dL Albumin (3.5-5.0) g/dL Urine Color Yellow Urine Appearance Clear (Clear) Urine pH 5.0 (5.0-8.0) Ur Specific [place] 1.014 (1.001-1.035) Urine Protein Negative (Negative) Urine Glucose (UA) Negative (Negative) Urine Ketones 1+ H (Negative) Urine Blood Negative (Negative) Urine Nitrite Negative (Negative) Urine Bilirubin Negative (Negative) Urine Urobilinogen <2.0 (<2.0) mg/dL Ur Leukocyte Esterase Negative (Negative) Disposition Clinical Impression: Dehydration, Hypomagnesemia, Renal insufficiency syndrome Disposition: ADMITTED IP TO THIS [facility] Condition: Stable Referrals: Sidra Peace DO [Primary Care Provider] - 1-2 days
[2019-01-22 20:59] LABS: Appearance,Urine Clear (Clear); Bilirubin,Urine Negative (Negative); Blood,Urine Negative (Negative); Color,Urine Yellow; Glucose,Urine (UA) Negative (Negative); Ketones,Urine 1+ (Negative); Leukocyte Esterase,Urine Negative (Negative); Nitrite,Urine Negative (Negative); Protein,Urine Negative (Negative); Specific Gravity,Urine 1.014 (1.001-1.035); Urobilinogen,Urine <2.0 mg/dL (<2.0)
[2019-01-22] MEDS ORDERED: MAGNESIUM SULFATE-D5W PMX 1 GM in DEXTROSE/WATER 1 100ML.BAG IVPB ONE (21:09)
[2019-01-22] MEDS ORDERED: NALOXONE 0.4 MG/ML 1 ML VIAL IV PRN (22:27)
[2019-01-23] MEDS: SODIUM CHLORIDE 0.9% 1,000 ML IV SCH ×2 (05:52→12:27)
[2019-01-23] MEDS: amLODIPine 5 MG TAB PO SCH (08:00)
[2019-01-23] MEDS: busPIRone HCl 5 MG TAB PO SCH ×2 (08:00→19:59)
[2019-01-23] MEDS ORDERED: HYDROCHLOROTHIAZIDE 25 MG TAB PO SCH (09:00)
[2019-01-23] MEDS ORDERED: LEVOFLOXACIN 750 MG TAB PO SCH (09:00)
[2019-01-23] MEDS ORDERED: LOSARTAN 50 MG TAB PO SCH (09:00)
[2019-01-23] MEDS ORDERED: MAGNESIUM HYDROXIDE 2,400 MG/10 ML CUP PO PRN (19:11)
[2019-01-23] MEDS ORDERED: LACTULOSE 20 GM/30 ML CUP PO PRN (19:11)
[2019-01-23] MEDS ORDERED: LORazepam 0.5 MG TAB PO PRN (19:11)
[2019-01-23] MEDS ORDERED: MELATONIN 3 MG TABLET PO PRN (19:11)
[2019-01-23] MEDS ORDERED: MAG HYDROX/AL HYDROX/SIMETH 30 ML CUP PO PRN (19:11)
[2019-01-23] MEDS ORDERED: ONDANSETRON 4 MG/2 ML VIAL IVP PRN (19:11)
[2019-01-23] MEDS ORDERED: CALCIUM CARBONATE 500 MG CHEWABLE PO PRN (19:11)
[2019-01-23] MEDS: ENOXAPARIN 40 MG/0.4 ML SYRINGE SQ SCH (19:56)
--- NOTE | 2019-01-23 19:56 | US ---
EXAMINATION TYPE: US kidneys/renal and bladder DATE OF EXAM: 01/23/2019 COMPARISON: NONE CLINICAL HISTORY: renal failure/acute vs chronic. EXAM MEASUREMENTS: Right Kidney: 9.2 x 4.8 x 4.7 cm Left Kidney: 9.4 x 4.8 x 4.9 cm Right Kidney: No hydronephrosis or masses seen Left Kidney: No hydronephrosis or masses seen Bladder: wnl Bilateral Jets seen: No The urinary bladder is anechoic. No mass identified. IMPRESSION: No acute process.
[2019-01-23] MEDS: LACTATED RINGERS 1,000 ML IV SCH (19:57)
[2019-01-23] MEDS: CITALOPRAM HYDROBROMIDE 20 MG TAB PO SCH (19:59)
[2019-01-23] MEDS: MAGNESIUM OXIDE 400 MG TAB PO SCH (19:59)
[2019-01-23] MEDS: ASPIRIN 81 MG PO SCH (19:59)
--- NOTE | 2019-01-23 20:41 | HP ---
HISTORY AND PHYSICAL DATE OF ADMISSION: 01/22/2019 DATE OF SERVICE: 01/23/2019 PRESENTING COMPLAINT: Weak and tired. HISTORY OF PRESENTING COMPLAINT: This is a very pleasant 88-year-old patient of Dr. Sidra Peace. Chronic stable medical conditions include hypertension, osteoarthritis, depression, forgetful. Lives with her daughter. For about 5 days has not been feeling well, has had some fever and chills, tired, rundown. No cough. Decreased appetite. Feeling tired, rundown, dehydrated. Decreased activity. Denies any urinary symptoms. Denies any respiratory symptoms. The patient was in the ER, found to be in renal failure, was started on IV fluids. REVIEW OF SYSTEMS: CONSTITUTIONAL: Weak, tired, rundown. Decreased appetite. HEENT: Decreased hearing. RESPIRATORY: None. CARDIOVASCULAR: None. GASTROINTESTINAL: None. GENITOURINARY: None. MUSCULOSKELETAL: Arthritic pain in joints, especially in the lower back. DERMATOLOGICAL: None. HEMATOLOGICAL: None. LYMPHATICS: None. PSYCHIATRY: Forgetful. NEUROLOGICAL: None. PAST MEDICAL HISTORY: 1. Hypertension. 2. Osteoarthritis. 3. Depression. 4. Cellulitis. PAST SURGICAL HISTORY: 1. Bladder surgery. 2. Hysterectomy. 3. Tonsillectomy. 4. Bunionectomy, both feet. 5. Laser eye surgery for glaucoma. 6. Plastic surgery of nose. 7. Bladder suspension. PSYCH HISTORY: Anxiety and depression. SOCIAL HISTORY: Drinks alcohol occasionally. The patient started smoking at the age of 17, about 1 or 2 packs a day, quit in early 1970s. FAMILY HISTORY: Coronary artery disease. HOME MEDICATIONS: 1. Losartan 100 mg a day. 2. Levaquin 750 mg a day. 3. Hydrochlorothiazide 25 mg a day. 4. Buspirone 5 mg p.o. b.i.d. 5. Norvasc 5 mg p.o. daily. 6. Celexa 20 mg at bedtime. 7. Aspirin 81 mg p.o. at bedtime. ALLERGIES: CODEINE, causing nausea and vomiting. PHYSICAL EXAMINATION: Temperature 98.8, pulse 70, respiration 18. Blood pressure dropped down to 94/52. Pulse ox 95% on 3 L. GENERAL APPEARANCE: Well built; BMI 32.7. Lying in bed, tired-appearing. EYES: Pupils equal. Conjunctivae normal. HEENT: External appearance of nose and ears normal. Oral cavity normal. NECK: JVD not raised. Mass not palpable. RESPIRATORY: Effort normal. LUNGS: Slightly decreased breath sounds. CARDIOVASCULAR: First and second sounds normal. No edema. ABDOMEN: Soft, non-tender. Liver and spleen not palpable. LYMPHATIC: No lymph node palpable in neck or axillae. PSYCHIATRY: Patient is able to answer simple questions. NEUROLOGICAL: Pupils equal. Cranial nerves grossly intact. Power and sensation grossly intact. MUSCULOSKELETAL: Evidence of osteoarthritis, especially in hands and knees. INVESTIGATIONS: White count 9.4, hemoglobin 12.6, platelets 113, potassium 3.6, BUN 37, creatinine 1.40, magnesium 1.4. UA positive for ketone 1+. EKG tracing, personally reviewed by me, shows intraventricular block; otherwise sinus rhythm. Chest x-ray film, personally reviewed by me, is an AP film showing some elevation of the right diaphragm and some prominence of the venous system. ASSESSMENT: 1. This is a patient who for 5 days was not feeling well, with fever, chills, decreased appetite, feeling tired, rundown. Kidney numbers were off. Patient appears to have acute renal failure, likely prerenal. It may be noted that the patient is also on Cozaar and diuretic. 2. Essential hypertension. 3. Primary osteoarthritis. 4. Depression not otherwise specified. 5. 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 6. Possible acute viral syndrome. No obvious evidence of bacterial infection at this point. 7. Obesity; body mass index of 32.7. PLAN: The patient will be given IV fluids. Will hold off patient's Cozaar and hydrochlorothiazide at the present time. The patient's appetite has started to sweet pickled fruit maker. Will check renal ultrasound to rule out any chronicity of renal condition. Repeat electrolytes in the morning. Will keep a close eye on patient's blood pressure. Care was discussed with the patient's daughter and the patient in detail. MMODL / IJN: [id number] /
[2019-01-24] MEDS: LACTATED RINGERS 1,000 ML IV SCH ×2 (06:35→15:46)
[2019-01-24] MEDS: busPIRone HCl 5 MG TAB PO SCH ×2 (08:38→21:00)
[2019-01-24] MEDS: MAGNESIUM OXIDE 400 MG TAB PO SCH ×2 (08:38→21:01)
[2019-01-24] MEDS: amLODIPine 5 MG TAB PO SCH (08:38)
[2019-01-24] MEDS: ENOXAPARIN 40 MG/0.4 ML SYRINGE SQ SCH (08:38)
[2019-01-24 09:30] LABS: Calcium 8.8 mg/dL (8.4-10.2); Potassium 3.7 mmol/L (3.5-5.1)
[2019-01-24] MEDS ORDERED: FUROSEMIDE 10 MG/ML 4 ML VIAL IV STA (15:41)
[2019-01-24] MEDS: ASPIRIN 81 MG PO SCH (21:01)
[2019-01-24] MEDS: CITALOPRAM HYDROBROMIDE 20 MG TAB PO SCH (21:01)
--- NOTE | 2019-01-25 00:41 | PN ---
PROGRESS NOTE DATE OF SERVICE: January 24, 2019. PRESENTING COMPLAINT: Short of breath. INTERVAL HISTORY: Patient presented with acute renal failure, Cozaar and diuretic was held off. She was put on IV fluids. This afternoon, when I saw the patient, the patient was short of breath. No cough. No cough. No fever. No chills. REVIEW OF SYSTEMS: Done for constitution, cardiovascular, gastrointestinal, pulmonary, relevant findings as above. CURRENT MEDICATIONS: The patient is getting IV fluids. PHYSICAL EXAMINATION: VITAL SIGNS: Temperature 98.1, pulse 66.7, respiration 22, blood pressure 99/52, pulse ox 98% on showed pulse ox 82% on room air. GENERAL APPEARANCE: Sitting up, short of breath. EYES: Pupils equal. Conjunctivae normal. NECK: JVD not raised. Mass not palpable. RESPIRATORY: Effort increased. LUNGS: Bilateral basal crackles. CARDIOVASCULAR: 1st and 2nd sounds normal. No edema. ABDOMEN: Soft, nontender. Liver and spleen not palpable. PSYCHIATRY: Awake, answering questions. INVESTIGATIONS: Potassium 3.7, BUN 26, creatinine 0.90. ASSESSMENT: 1. Acute pulmonary edema from IV fluids. 2. Acute renal failure prerenal now corrected. 3. Essential hypertension. 4. Primary osteoarthritis. 5. Depression, not otherwise specified. 6. Mild to moderate cognitive impairment probably from late onset Alzheimer's dementia. 7. Acute viral syndrome. PLAN: IV fluids was discontinued. I did give the patient 1 dose of IV Lasix. Check electrolytes in the morning. Care was discussed with daughter at the bedside and see how she does tomorrow. The patient had renal ultrasound did not show any chronic changes. MMODL / IJN: [id number] /
[2019-01-25] MEDS: ACETAMINOPHEN TAB 325 MG TAB PO PRN ×3 (02:10→21:53)
[2019-01-25 08:31] LABS: Calcium 8.7 mg/dL (8.4-10.2); Potassium 3.9 mmol/L (3.5-5.1)
[2019-01-25] MEDS: MAGNESIUM OXIDE 400 MG TAB PO SCH ×2 (08:38→21:53)
[2019-01-25] MEDS: amLODIPine 5 MG TAB PO SCH (08:38)
[2019-01-25] MEDS: LEVOFLOXACIN 750 MG TAB PO SCH (08:38)
[2019-01-25] MEDS: busPIRone HCl 5 MG TAB PO SCH ×2 (08:38→21:53)
[2019-01-25] MEDS: ENOXAPARIN 40 MG/0.4 ML SYRINGE SQ SCH (08:38)
[2019-01-25] MEDS ORDERED: FUROSEMIDE 10 MG/ML 2 ML VIAL IV ONE (12:30)
--- NOTE | 2019-01-25 17:01 | PN ---
PROGRESS NOTE DATE OF SERVICE: 01/25/19. PRESENTING COMPLAINT: Short of breath. INTERVAL HISTORY: The patient presented with acute renal failure, given IV fluids, went into pulmonary edema, did get 40 mg of Lasix. Breathing is better but still desaturating, though overall feels better. Did tolerate a diet. REVIEW OF SYSTEMS: Done for constitutional, cardiovascular, GI, pulmonary; relevant findings as above. CURRENT MEDICATIONS: Reviewed. PHYSICAL EXAMINATION: Temperature 97.8, pulse 77, respirations 16, blood pressure 90/49, pulse ox 87 percent on room air. GENERAL APPEARANCE: Lying in bed, tired, breathing much improved. EYES: Pupils equal. Conjunctivae normal. NECK: JVD not raised. Mass not palpable. RESPIRATORY: Effort increased. LUNGS: Minimal basal crackles. CARDIOVASCULAR: First and second sounds, no edema. ABDOMEN: Soft, nontender. Liver and spleen not palpable. PSYCHIATRY: Awake, answering questions appropriately. INVESTIGATIONS: Potassium 3.9, BUN 28, creatinine 1.11. ASSESSMENT: 1. Acute pulmonary edema from IV fluids, improving. 2. Acute renal failure, now corrected. 3. Acute hypoxic respiratory failure from pulmonary edema. 4. Essential hypertension. 5. Primary osteoarthritis. 6. Depression, not otherwise specified. 7. Mild to moderate cognitive impairment probably from late onset Alzheimer's dementia. 8. Acute viral syndrome on presentation. PLAN: Will give a dose 1 dose of 20 IV Lasix today. Hoping patient should be able to be discharged tomorrow. MMODL / IJN: [id number] /
[2019-01-25] MEDS: ASPIRIN 81 MG PO SCH (21:53)
[2019-01-25] MEDS: CITALOPRAM HYDROBROMIDE 20 MG TAB PO SCH (21:53)
[2019-01-26] MEDS: ENOXAPARIN 30 MG/0.3 ML SYRINGE SQ SCH (08:33)
[2019-01-26] MEDS: busPIRone HCl 5 MG TAB PO SCH ×2 (08:33→19:58)
[2019-01-26] MEDS: amLODIPine 5 MG TAB PO SCH (08:34)
[2019-01-26] MEDS: MAGNESIUM OXIDE 400 MG TAB PO SCH ×2 (08:34→19:58)
[2019-01-26 09:49] LABS: Calcium 8.7 mg/dL (8.4-10.2); Potassium 3.1 mmol/L (3.5-5.1)
[2019-01-26] MEDS ORDERED: Potassium Replacement Protocol 1 EACH MISC MISCELLANE PRN (10:43)
[2019-01-26] MEDS: POTASSIUM CHLORIDE ER 20 MEQ TAB.ER PO SCH ×2 (11:20→12:14)
[2019-01-26] MEDS: ACETAMINOPHEN TAB 325 MG TAB PO PRN (12:17)
[2019-01-26] MEDS: CITALOPRAM HYDROBROMIDE 20 MG TAB PO SCH (19:58)
[2019-01-26] MEDS: ASPIRIN 81 MG PO SCH (19:58)
--- NOTE | 2019-01-26 20:32 | PN ---
PROGRESS NOTE DATE OF SERVICE: 01/26/2019 PRESENTING COMPLAINT: Tired. INTERVAL HISTORY: This patient presented with acute renal failure. Did get some pulmonary edema. Did respond well to Lasix. She is rather weak and tired. Family and social media senior associate are looking now into inpatient rehab. Patient did tolerate her diet. Lying in bed. REVIEW OF SYSTEMS: Done for constitutional, cardiovascular, GI, pulmonary; relevant findings as above. CURRENT MEDICATIONS: Reviewed. PHYSICAL EXAMINATION: VITAL SIGNS: Temperature 98.2, pulse 80, respiration 16, blood pressure 92/52, pulse ox 91% on 2 L. GENERAL APPEARANCE: Lying in bed, tired-appearing. EYES: Pupils equal. Conjunctivae normal. NECK: JVD not raised. Mass not palpable. RESPIRATORY: Effort normal. LUNGS: Improved air entry. CARDIOVASCULAR: First and second sounds normal. No edema. ABDOMEN: Soft, non-tender. Liver and spleen not palpable. PSYCHIATRY: Awake. Answering simple questions. INVESTIGATIONS: Potassium 3.1, BUN 26, creatinine 0.90. ASSESSMENT: 1. Acute pulmonary edema from IV fluids, improved. 2. Acute renal failure, corrected. Likely prerenal. 3. Acute hypoxic respiratory failure from pulmonary edema, improving. 4. Essential hypertension. 5. Primary osteoarthritis. 6. Depression not otherwise specified. 7. Acute viral syndrome on presentation. 8. 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 PLAN: Continue current medication and treatment plan. The patient will need 3 nights' stay to go to the [facility]. The patient's potassium is being replaced. Care was discussed with the social media senior associate Jennifer. MMITALOL / IJN: [id number] /
[2019-01-27] MEDS: amLODIPine 5 MG TAB PO SCH (08:21)
[2019-01-27] MEDS: busPIRone HCl 5 MG TAB PO SCH ×2 (08:21→20:26)
[2019-01-27] MEDS: LEVOFLOXACIN 750 MG TAB PO SCH (08:21)
[2019-01-27] MEDS: MAGNESIUM OXIDE 400 MG TAB PO SCH ×2 (08:22→20:27)
[2019-01-27] MEDS: ENOXAPARIN 30 MG/0.3 ML SYRINGE SQ SCH (08:22)
[2019-01-27] MEDS: ACETAMINOPHEN TAB 325 MG TAB PO PRN (08:23)
[2019-01-27 09:41] LABS: Calcium 9.1 mg/dL (8.4-10.2); Magnesium 1.8 mg/dL (1.6-2.3); Potassium 4.4 mmol/L (3.5-5.1)
[2019-01-27] MEDS: ASPIRIN 81 MG PO SCH (20:27)
[2019-01-27] MEDS: CITALOPRAM HYDROBROMIDE 20 MG TAB PO SCH (20:27)
--- NOTE | 2019-01-27 21:59 | PN ---
PROGRESS NOTE DATE OF SERVICE: January 27, 2019 tired. INTERVAL HISTORY: This patient presented with acute renal failure, and got some fluids and went into pulmonary edema. The patient also found to be in acute respiratory failure. Did require oxygen. The patient feels tired and run down. Awaiting to go to rehab. Daughter at the bedside. Tolerating some diet. REVIEW OF SYSTEMS: Done for constitutional, GI, pulmonary; relevant findings as above. CURRENT MEDICATIONS: Reviewed. PHYSICAL EXAMINATION: VITAL SIGNS: Temperature 97.8, pulse 72, respiratory rate 16, blood pressure 113/74, pulse ox 98% on 2 L. GENERAL APPEARANCE: Sitting on bed, awake, tired. EYES: Pupils equal. Conjunctivae normal. NECK: JVD not raised. Mass not palpable. RESPIRATORY: Effort normal. LUNGS: Improved air entry. CARDIOVASCULAR: 1st and 2nd sounds normal. No edema. ABDOMEN: Soft, nontender. Liver and spleen not palpable. PSYCHIATRY: Awake, answering questions. INVESTIGATIONS: Potassium 4.4, BUN 27, creatinine 0.78. ASSESSMENT: 1. Acute pulmonary edema from IV fluids, improved. 2. Acute renal failure corrected, likely prerenal. 3. Acute hypoxic respiratory failure, pulmonary edema, improving. 4. Essential hypertension. 5. Primary osteoarthritis. 6. Depression, not otherwise specified. 7. Acute bowel syndrome on presentation. 8. Mild to moderate cognitive impairment from late onset Alzheimer's dementia. PLAN: Care was discussed with the daughter at the bedside. Encouraged to improve oral intake. The patient will be going to [facility] after she qualifies for a three night stay. MMODL / IJN: [id number] /
[2019-01-28] MEDS: MAGNESIUM OXIDE 400 MG TAB PO SCH (08:13)
[2019-01-28] MEDS: busPIRone HCl 5 MG TAB PO SCH (08:13)
[2019-01-28] MEDS: amLODIPine 5 MG TAB PO SCH (08:14)
[2019-01-28] MEDS: ENOXAPARIN 30 MG/0.3 ML SYRINGE SQ SCH (08:14)
[2019-01-28] MEDS: ACETAMINOPHEN TAB 325 MG TAB PO PRN (08:17)
[2019-01-28 08:31] LABS: Calcium 8.9 mg/dL (8.4-10.2); Potassium 4.5 mmol/L (3.5-5.1)
[2019-01-28 14:32] VITALS: BP 113/56; PULSE 62; RESP 16; TEMP 97.5
--- NOTE | 2019-01-28 15:09 | DS ---
DISCHARGE SUMMARY DATE OF ADMISSION: 01/25/2019 DATE OF DISCHARGE: 01/28/2019 FINAL DIAGNOSES: 1. Acute renal failure, prerenal, POA. 2. Acute pulmonary edema from IV fluids. 3. Acute hypoxic respiratory failure from pulmonary edema. 4. Essential hypertension. 5. Primary osteoarthritis. 6. Depression, not otherwise specified. 7. Mild to moderate cognitive impairment from late onset Alzheimer's dementia. 8. Acute viral syndrome on presentation. HOSPITAL COURSE: Patient presented acute viral syndrome and decreased oral intake. Was in renal failure, was given IV fluids, went into pulmonary edema, patient requiring oxygen. Creatinine on presentation was 1.4, now down to 0.74. Patient is requiring 2 L of oxygen. Patient's oxygen room air does drop down to 86%. On examination, patient able to answer simple questions. LUNGS: Decreased breath sounds. Patient at some point will need long-term care. Care was discussed with daughter. DISCHARGE MEDICATIONS: 1. Celexa 20 mg q.h.s. 2. Aspirin 81 mg q.h.s. 3. Norvasc 5 mg p.o. daily. 4. BuSpar 5 mg b.i.d. 5. Tylenol 650 mg q.6 p.r.n. 6. Chlorthalidone 25 mg p.o. daily. DISPOSITION: [facility]. FOLLOWUP: Follow up with Dr. Allison at [facility]. Follow up with Dr. Sidra Peace after DC from [facility]. Oxygen 2 L at all times. MMODL / IJN: [id number] /
[2019-01-29] MEDS ORDERED: ENOXAPARIN 40 MG/0.4 ML SYRINGE SQ SCH (09:00)
== END 2019-01-28 15:56 | DRG 189 ==
LOC: EC 18:16 → 4MS4W 22:31 → OBSVTOIN 01-25 13:48
PROVIDERS: ADMIT Hospitalist; ATTEND Hospitalist
DX: J81.0 Acute pulmonary edema (principal); J96.01 Acute respiratory failure with hypoxia; N17.9 Acute kidney failure, unspecified; E86.0 Dehydration; E83.42 Hypomagnesemia; F02.80 Dementia in other diseases classified elsewhere, unspecified severity, without behavioral disturbance, psychotic disturbance, mood disturbance, and anxiety; G30.1 Alzheimer's disease with late onset; M19.91 Primary osteoarthritis, unspecified site; I10 Essential (primary) hypertension; F32.9 Major depressive disorder, single episode, unspecified; F41.9 Anxiety disorder, unspecified; E66.9 Obesity, unspecified; B34.9 Viral infection, unspecified; T50.3X5A Adverse effect of electrolytic, caloric and water-balance agents, initial encounter; Z68.32 Body mass index [BMI] 32.0-32.9, adult; Z79.82 Long term (current) use of aspirin; Z79.899 Other long term (current) drug therapy; Z90.710 Acquired absence of both cervix and uterus; Z87.891 Personal history of nicotine dependence; Z88.5 Allergy status to narcotic agent; Z82.49 Family history of ischemic heart disease and other diseases of the circulatory system
CPT/HCPCS: 36415; 71046; 76770; 80048; 80053; 81003; 82550; 83735; 84484; 85025; 85610; 85730; 93005; 96361; 96365; 99285

== ENCOUNTER 2019-02-05 21:02 | Inpatient (IN) | payer MEDICARE, OTHER ==
--- NOTE | 2019-02-05 21:11 | ED ---
General Adult HPI - General Stated complaint: ALYSSA Time Seen by Provider: 02/05/19 21:09 - History of Present Illness Initial comments: Vicki Cabrera is a pleasant 88yo female who presents to the ED via EMS for evaluation of hypoxia. Patient resides at a senior care facility, they noted today that her oxygen repeatedly decreased to the mid 80s, patient was given 2L NC with minimal improvement, her SpO2 was increased to 4L and her oxygen saturation improved to mid 90s. Patient denies any acute complaints but does report fatigue. Of note patient signed a DNAR form yesterday. - Related Data Home Medications Medication Instructions Recorded Confirmed Citalopram Hydrobromide [CeleXA] 20 mg PO HS 10/02/16 02/05/19 Aspirin EC [Ecotrin Low Dose] 81 mg PO HS 11/24/17 02/05/19 amLODIPine [Norvasc] 5 mg PO DAILY 11/24/17 02/05/19 busPIRone HCl [Buspar] 5 mg PO BID 11/24/17 02/05/19 Bisacodyl [Dulcolax] 10 mg RECTAL DAILY PRN 02/05/19 02/05/19 Doxycycline Hyclate 100 mg PO BID 02/05/19 02/05/19 Ipratropium-Albuterol Nebulize 3 ml INHALATION RT-QID 02/05/19 02/05/19 [Duoneb 0.5 mg-3 mg/3 ml Soln] Na Phos,M-B/Na Phos,Di-Ba [Fleet 1 dose RECTAL DAILY PRN 02/05/19 02/05/19 Adult] Previous Rx's Medication Instructions Recorded Acetaminophen Tab [Tylenol] 650 mg PO Q6HR PRN tab 01/28/19 Chlorthalidone 25 mg PO DAILY #1 tab 01/28/19 Allergies Allergy/AdvReac Type Severity Reaction Status Date / Time codeine AdvReac Nausea & Verified 02/05/19 21:14 Vomiting Review of Systems ROS Statement: Those systems with pertinent positive or pertinent negative responses have been documented in the HPI. ROS Other: All systems not noted in ROS Statement are negative. Past Medical History Past Medical History: Hypertension, Osteoarthritis (OA) Additional Past Medical History / Comment(s): HX OF GLAUCOMA, HX OF CELLULITIS IN LEGS & FEET OCT 2016., BLOOD IN STOOL. History of Any Multi-Drug Resistant Organisms: None Reported Past Surgical History: Bladder Surgery, Hysterectomy, Tonsillectomy Additional Past Surgical History / Comment(s): bunionectomy rosa feet, laser eye sx for glaucoma, plastic sx on nose, bladder suspension, egd/colonoscopy. Past Anesthesia/Blood Transfusion Reactions: No Reported Reaction Past Psychological History: Anxiety, Depression Smoking Status: Former smoker Past Alcohol Use History: Occasional Additional Past Alcohol Use History / Comment(s): started smoking at ge 17 smoked 1-2 ppd, quit in early Past Drug Use History: None Reported - Past Family History Mother Family Medical History: Coronary Artery Disease (CAD) Additional Family Medical History / Comment(s): heart problems Father Additional Family Medical History / Comment(s): anuerysm General Exam - General Exam Comments Initial Comments: Physical Exam GENERAL: Elderly, chronically ill appearing HENT: Normocephalic, Atraumatic. EYES: PERRL, EOMI PULMONARY: Unlabored respirations. No audible rales rhonchi or wheezing was noted. On 4L NC CARDIOVASCULAR: There is a regular rate and rhythm without any murmurs gallops or rubs. ABDOMEN: Soft and nontender with normal bowel sounds. SKIN: Skin is clear with no lesions or rashes and otherwise unremarkable. : Deferred NEUROLOGIC: Patient is alert and oriented x3. Moving all extremities spontaneously MUSCULOSKELETAL: Normal extremities with adequate strength and full range of motion. No lower extremity swelling or edema. No calf tenderness. PSYCHIATRIC: Normal psychiatric evaluation. Limitations: no limitations Course Vital Signs 02/05/19 02/05/19 02/06/19 21:07 22:38 00:00 Temperature 98.5 F 99.3 F Pulse Rate 88 86 87 Pulse Rate [ Left Supine Pulse Oximetery ] Respiratory 21 18 26 H Rate Blood Pressure 113/56 112/53 115/54 Blood Pressure [Left Arm Supine] O2 Sat by Pulse 97 95 94 L Oximetry 02/06/19 02/06/19 02/06/19 02:45 02:48 03:11 Temperature 98.4 F Pulse Rate Pulse Rate [ 51 L Left Supine Pulse Oximetery ] Respiratory 18 19 18 Rate Blood Pressure Blood Pressure 116/76 [Left Arm Supine] O2 Sat by Pulse 100 Oximetry EKG Findings - EKG Comments: EKG Findings:: EKG was obtained at 2132, rate is 89 rhythm is sinus is a leftward deviation there are normal intervals with a left bundle branch block, RI 134, QRS 128, QTC 508. There are no acute ST elevations or depressions no evidence of acute ischemia or infarction. Medical Decision Making - Medical Decision Making Was seen and evaluated history is obtained from patient and EMS review of medical record Patient presenting with hypoxia without any signs of chest pain On physical exam patient is on 4 L nasal cannula oxygen is in the mid 90s she has no acute complaints Labs and imaging were ordered EKG was unremarkable and patient was taken to x-ray and returned to the room. Her oxygen was reconnected to the wall however the oxygen was not restarted upon reevaluation the patient was pale and diaphoretic with oxygen saturation in the low 80s, Oxygen was then resumed her oxygenation improved to the mid 90s. Labs and imaging offer no explanation for the patient's hypoxia, however patient does continue to require 4 L nasal cannula therefore will be admitted to the hospital for further evaluation. - Lab Data Result diagrams: 02/05/19 21:21 02/05/19 21:21 Lab Results 02/05/19 02/05/19 02/05/19 Range/Units 21:21 21:21 21:21 WBC 13.0 H (3.8-10.6) k/uL RBC 4.33 (3.80-5.40) m/uL Hgb 12.3 (11.4-16.0) gm/dL Hct 39.4 (34.0-46.0) % MCV 91.1 (80.0-100.0) fL MCH 28.4 (25.0-35.0) pg MCHC 31.2 (31.0-37.0) g/dL RDW 13.1 (11.5-15.5) % Plt Count 217 (150-450) k/uL Neutrophils % 85 % Lymphocytes % 7 % Monocytes % 6 % Eosinophils % 1 % Basophils % 0 % Neutrophils # 11.0 H (1.3-7.7) k/uL Lymphocytes # 0.9 L (1.0-4.8) k/uL Monocytes # 0.7 (0-1.0) k/uL Eosinophils # 0.1 (0-0.7) k/uL Basophils # 0.0 (0-0.2) k/uL PT (9.0-12.0) sec INR (<1.2) APTT (22.0-30.0) sec Sodium 139 (137-145) mmol/L Potassium 3.3 L (3.5-5.1) mmol/L Chloride 96 L (98-107) mmol/L Carbon Dioxide 31 H (22-30) mmol/L Anion Gap 12 mmol/L BUN 28 H (7-17) mg/dL Creatinine 0.92 (0.52-1.04) mg/dL Est GFR (CKD-EPI)AfAm 65 (>60 ml/min/1.73 sqM) Est GFR (CKD-EPI)NonAf 57 (>60 ml/min/1.73 sqM) Glucose 209 H (74-99) mg/dL Calcium 9.4 (8.4-10.2) mg/dL Magnesium 1.7 (1.6-2.3) mg/dL Total Bilirubin 0.5 (0.2-1.3) mg/dL AST 17 (14-36) U/L ALT 21 (9-52) U/L Alkaline Phosphatase 90 (38-126) U/L Troponin I (0.000-0.034) ng/mL NT-Pro-B Natriuret Pep 413 pg/mL Total Protein 6.7 (6.3-8.2) g/dL Albumin 3.3 L (3.5-5.0) g/dL 02/05/19 02/05/19 Range/Units 21:21 21:21 WBC (3.8-10.6) k/uL RBC (3.80-5.40) m/uL Hgb (11.4-16.0) gm/dL Hct (34.0-46.0) % MCV (80.0-100.0) fL MCH (25.0-35.0) pg MCHC (31.0-37.0) g/dL RDW (11.5-15.5) % Plt Count (150-450) k/uL Neutrophils % % Lymphocytes % % Monocytes % % Eosinophils % % Basophils % % Neutrophils # (1.3-7.7) k/uL Lymphocytes # (1.0-4.8) k/uL Monocytes # (0-1.0) k/uL Eosinophils # (0-0.7) k/uL Basophils # (0-0.2) k/uL PT 11.6 (9.0-12.0) sec INR 1.1 (<1.2) APTT 27.4 (22.0-30.0) sec Sodium (137-145) mmol/L Potassium (3.5-5.1) mmol/L Chloride (98-107) mmol/L Carbon Dioxide (22-30) mmol/L Anion Gap mmol/L BUN (7-17) mg/dL Creatinine (0.52-1.04) mg/dL Est GFR (CKD-EPI)AfAm (>60 ml/min/1.73 sqM) Est GFR (CKD-EPI)NonAf (>60 ml/min/1.73 sqM) Glucose (74-99) mg/dL Calcium (8.4-10.2) mg/dL Magnesium (1.6-2.3) mg/dL Total Bilirubin (0.2-1.3) mg/dL AST (14-36) U/L ALT (9-52) U/L Alkaline Phosphatase (38-126) U/L Troponin I <0.012 (0.000-0.034) ng/mL NT-Pro-B Natriuret Pep pg/mL Total Protein (6.3-8.2) g/dL Albumin (3.5-5.0) g/dL Disposition Clinical Impression: Hypoxia Disposition: ADMITTED IP TO THIS [facility] Condition: Serious Referrals: Marcell Allison DO [STAFF PHYSICIAN] - 1-2 days
[2019-02-05 22:01] LABS: Basophils % (A) 0 %; Eosinophils # (A) 0.1 k/uL (0-0.7); Eosinophils % (A) 1 %; HCT 39.4 % (34.0-46.0); HGB 12.3 gm/dL (11.4-16.0); Lymphocytes # (A) 0.9 k/uL (1.0-4.8); Lymphocytes % (A) 7 %; MCH 28.4 pg (25.0-35.0); MCHC 31.2 g/dL (31.0-37.0); MCV 91.1 fL (80.0-100.0); Mean Platelet Volume 10.2; Monocytes # (A) 0.7 k/uL (0-1.0); Monocytes % (A) 6 %; Neutrophils % (A) 85 %; Platelet Count 217 k/uL (150-450); RBC 4.33 m/uL (3.80-5.40); RDW 13.1 % (11.5-15.5)
[2019-02-05 22:10] LABS: Albumin 3.3 g/dL (3.5-5.0); Calcium 9.4 mg/dL (8.4-10.2); Magnesium 1.7 mg/dL (1.6-2.3); Potassium 3.3 mmol/L (3.5-5.1); Total Bilirubin 0.5 mg/dL (0.2-1.3); Total Protein 6.7 g/dL (6.3-8.2)
[2019-02-05 22:23] LABS: INR 1.1 (<1.2); Partial Thromboplastin Time 27.4 sec (22.0-30.0); Prothrombin Time 11.6 sec (9.0-12.0)
--- NOTE | 2019-02-05 23:04 | XR ---
History: ITS.REASON XR Reason: difficulty breathing Exam: XR CXR 2 VIEWS Comparison: 01/22/[address] 10/02/2016 FINDINGS: No significantly interval change in ill-defined opacity at the medial right upper lung which by CT corresponds to the expected mediastinal vessels, unchanged since 2016. The lungs otherwise appear clear. Pulmonary vascularity appears within limits. Cardiac silhouette appears unchanged. Osteopenia, old right rib fracture deformity, right acromioclavicular joint osteoarthrosis. IMPRESSION: No significantly interval change in ill-defined opacity at the medial right upper lung which by CT corresponds to the expected mediastinal vessels, unchanged since 2016. The lungs otherwise appear clear. Pulmonary vascularity appears within limits.
--- NOTE | 2019-02-06 01:00 | CT ---
History: ITS.REASON CT Reason: Pain Exam: CTA CHEST MIP images obtained Technique more: CTDI is 10.2 mGy and DLP is 345 mGy-cm. Technique more: This CT exam was performed using one or more of the following dose reduction techniques: automated exposure control, adjustment of the mA and/or kV according to patient size, and/or use of iterative reconstruction technique. Comparison: 10/02/2016 FINDINGS: Motion artifact limits the evaluation. No evidence of large central or hilar pulmonary embolism. Ectatic thoracic aorta appears within limits. Ectatic and undulating right brachiocephalic, proximal common carotid and subclavian artery at the right upper chest again noted appear within limits. No pericardial or pleural effusion. The central airways are patent without focal consolidation. Chronic interstitial changes again noted. Mild dependent basilar atelectasis. 5 mm noncalcified subpleural pulmonary nodule right lower lobe axial 63 not significantly changed since 2015. IMPRESSION: Motion artifact limits the evaluation. No evidence of large central or hilar pulmonary embolism. The central airways are patent without focal consolidation. Chronic interstitial changes again noted. Mild dependent basilar atelectasis. 5 mm noncalcified subpleural pulmonary nodule right lower lobe axial 63 not significantly changed since 2016.
[2019-02-06] MEDS ORDERED: NALOXONE 0.4 MG/ML 1 ML VIAL IV PRN (01:35)
[2019-02-06] MEDS ORDERED: ACETAMINOPHEN TAB 325 MG TAB PO PRN (01:36)
[2019-02-06 03:30] VITALS: BMI 26.6
[2019-02-06] MEDS: IPRATROPIUM-ALBUTEROL 3 ML NEB INHALATION SCH ×4 (08:20→20:01)
[2019-02-06] MEDS ORDERED: CHLORTHALIDONE 25 MG TAB PO SCH (09:00)
[2019-02-06] MEDS: amLODIPine 5 MG TAB PO SCH (10:23)
[2019-02-06] MEDS: busPIRone HCl 5 MG TAB PO SCH ×2 (10:23→21:40)
[2019-02-06] MEDS ORDERED: BISACODYL 10 MG SUPP RECTAL PRN (18:09)
[2019-02-06] MEDS ORDERED: IPRATROPIUM-ALBUTEROL 3 ML NEB INHALATION PRN (18:11)
[2019-02-06] MEDS ORDERED: ALPRAZolam 0.25 MG TAB PO PRN (18:12)
--- NOTE | 2019-02-06 20:28 | HP ---
HISTORY AND PHYSICAL DATE OF SERVICE: 02/06/2019 CHIEF COMPLAINTS: Shortness of breath and hypoxia. HISTORY OF PRESENT ILLNESS: This 88-year-old woman with a past medical history of hypertension, DJD, history of glaucoma, history of bladder surgery, history of anxiety, depression, being followed by Dr. Allison in the [facility], was noted to have hypoxia. The patient was recently admitted with acute renal failure and acute pulmonary edema from IV fluids. The patient was treated symptomatically. Patient improved significantly. Patient was sent to the F. On the previous admission, the creatinine was elevated at 1.11. Currently the patient was noted to have hypoxia and the patient was sent to [facility] Emergency Room and was admitted for evaluation and treatment. The patient had a pulse ox that was in the 80s in the the ECF. She was given 2 L nasal cannula initially and subsequently 4 L and the pulse ox increased to the 90s. Currently the patient is confused, unable to give a coherent history. Most of the history is taken from my discussion with staff and review of the chart and discussion with the family at the bedside. The CTA done today showed no evidence of any pulmonary embolism, but it was limited, and a noncalcified subpleural pulmonary nodule was noted. There is no history of any fever, rigor or chills at this time. No history of trauma at this time. PAST MEDICAL HISTORY: 1. Hypertension. 2. DJD. 3. History of glaucoma. 4. Cellulitis. 5. History of blood in the stools. 6. Anxiety. 7. Depression. HOME MEDICATIONS: 1. Fleet enema p.r.n. 2. Dulcolax p.r.n. 3. Albuterol nebulizer 3 mL q.i.d. 4. Doxycycline 100 mg p.o. b.i.d. 5. Tylenol 650 q.6 p.r.n. 6. BuSpar 5 mg p.o. b.i.d. 7. Norvasc 5 mg p.o. daily. 8. Celexa 20 mg at bedtime. 9. Chlorthalidone 25 mg daily. 10.Aspirin 81 mg daily. ALLERGIES: CODEINE. FAMILY HISTORY: History of coronary artery disease and heart problems in the family. SOCIAL HISTORY: Previous history of smoking. No history of alcohol intake, per chart. REVIEW OF SYSTEMS: Review of systems could not be taken because of the patient's mental status. PHYSICAL EXAMINATION: Patient is conscious, confused. Pulse 77, blood pressure 103/69, respiration 16, temperature 98.4, pulse ox 95% on room air. HEENT: Conjunctivae normal. Oral mucosa moist. NECK: No jugular venous distention. No carotid bruit. No lymph node enlargement. CARDIOVASCULAR SYSTEM: S1, S2 muffled. Ejection systolic murmur present. No S3. No S4. RESPIRATORY SYSTEM: Breath sounds diminished at the bases. Bilateral scattered rhonchi and crackles. Expiratory wheezing also present. ABDOMEN: Soft, obese, non-tender. No mass palpable. LEGS: Bilateral leg edema. NERVOUS SYSTEM: Higher functions as mentioned earlier. Moves all 4 limbs. No focal motor or sensory deficit. LYMPHATICS: No lymph node palpable in neck, axillae or groin. SKIN: No ulcer, rash, bleeding. JOINTS: No active deforming arthropathy. LAB INVESTIGATIONS AT THIS TIME: WBC 13, hemoglobin 12.3. Sodium 139, potassium 3.3, albumin 3.3. ASSESSMENT: 1. Congestive heart failure, acute exacerbation, with acute on chronic diastolic dysfunction possibly, with acute hypoxic respiratory failure. 2. Hypokalemia. 3. Increased white count. 4. Hypertension. 5. History of degenerative joint disease. 6. History of glaucoma. 7. History of cellulitis of the legs. 8. History of recent renal failure and fluid overload. 9. History of anxiety, depression. 10.Remote history of nicotine dependence. 11.NO CODE, NO CPR, NO VENT. RECOMMENDATIONS AND DISCUSSION: In this 88-year-old woman who presented with multiple complex medical issues, we will monitor the patient closely, continue the current medications, continue with symptomatic treatment. Will initiate IV diuretics and cardiology evaluation, a 2D echo with Doppler, set of troponins. Monitor fluid/electrolyte balance closely. Fluid restriction to 1500 mL per 24 hours. Otherwise, supplement potassium. Guarded prognosis because of multiple complex medical conditions. Further recommendations to follow. Will also administer bronchodilators and DVT prophylaxis. Overall prognosis guarded because of multiple complex medical issues. Further recommendations to follow. Discussed with the family at length. Patient continues to be NO CODE. MMODL / IJN: [id number] /
[2019-02-06] MEDS: ASPIRIN 81 MG PO SCH (21:40)
[2019-02-06] MEDS: POTASSIUM CHLORIDE ER 20 MEQ TAB.ER PO SCH ×2 (21:40→23:46)
[2019-02-06] MEDS: HEPARIN SODIUM,PORCINE 5,000 UNIT/ML 1 ML VIAL SQ SCH (21:41)
[2019-02-06] MEDS: CITALOPRAM HYDROBROMIDE 20 MG TAB PO SCH (21:41)
[2019-02-07] MEDS: POTASSIUM CHLORIDE ER 20 MEQ TAB.ER PO SCH (03:07)
[2019-02-07 06:52] LABS: Basophils % (A) 0 %; Eosinophils # (A) 0.1 k/uL (0-0.7); Eosinophils % (A) 1 %; HCT 34.9 % (34.0-46.0); HGB 11.1 gm/dL (11.4-16.0); Lymphocytes # (A) 0.6 k/uL (1.0-4.8); Lymphocytes % (A) 7 %; MCH 28.4 pg (25.0-35.0); MCHC 31.8 g/dL (31.0-37.0); MCV 89.4 fL (80.0-100.0); Monocytes # (A) 0.5 k/uL (0-1.0); Monocytes % (A) 6 %; Neutrophils # (A) 6.5 k/uL (1.3-7.7); Neutrophils % (A) 83 %; Platelet Count 230 k/uL (150-450); RDW 14.3 % (11.5-15.5); WBC 7.9 k/uL (3.8-10.6)
--- NOTE | 2019-02-07 07:12 | XR ---
EXAMINATION TYPE: XR chest 1V portable DATE OF EXAM: 02/07/2019 HISTORY: chf. REFERENCE: Previous study dated 02/05/2019. FINDINGS: There is chronic apparent elevation right hemidiaphragm. On today's examination there cher nues to be some opacity in the right upper lobe. The remainder the lungs are clear. Pleural spaces ap pear clear. Heart size upper limits of normal. IMPRESSION: PERSISTENT RIGHT UPPER LOBE AIRSPACE DISEASE.
[2019-02-07 07:18] LABS: Calcium 9.2 mg/dL (8.4-10.2); Potassium 4.8 mmol/L (3.5-5.1)
[2019-02-07] MEDS: IPRATROPIUM-ALBUTEROL 3 ML NEB INHALATION SCH ×4 (08:38→19:59)
[2019-02-07] MEDS: HEPARIN SODIUM,PORCINE 5,000 UNIT/ML 1 ML VIAL SQ SCH ×2 (10:06→21:20)
[2019-02-07] MEDS: busPIRone HCl 5 MG TAB PO SCH ×2 (10:06→21:20)
[2019-02-07] MEDS: amLODIPine 5 MG TAB PO SCH (10:07)
[2019-02-07] MEDS: PANTOPRAZOLE 40 MG TABLET PO SCH (10:07)
--- NOTE | 2019-02-07 10:44 | P.CRDCN ---
History of Present Illness Consult date: 02/07/19 Consult reason: shortness of breath History of present illness: HPI: Patient is an 88-year-old female who is readmitted to the hospital for hypoxia. She resides in a long term facility on vital sign assessment pulse ox was in 80s. Oxygen saturations improved with oxygen supplementation in the ER. Cardiology was consult for left bundle branch block and PVCs noted on EKG. Her troponin was negative, BNP was normal; chest x-ray negative for acute process. She was recently treated in January for acute pulmonary edema and acute renal failure. Echocardiogram from November 2017 shows normal LV function mild aortic stenosis and mild pulmonary hypertension. On exam, patient is resting comfortably in bed. She denies any chest discomfort, palpitations, dizziness, or lightheadedness. She denies any shortness of breath and is currently on 4 L nasal cannula. Lung sounds have bibasilar crackles. PAST MEDICAL HISTORY: Hypertension, left bundle branch block REVIEW OF SYSTEMS: No Fever or chills. No cough or expectoration. No diaphoresis. Patient denies headache, dizziness, blurred vision, double vision. Patient denies any stomach discomfort. No nausea, vomiting. No hematochezia. No hematemesis. Denies any black stools or blood in his stools. Denies dysuria or hematuria. No muscle weakness or numbness. PHYSICAL EXAMINATION: This is a 88-year-old female in no apparent distress at the time of my examination. HEENT: Head is atraumatic, normocephalic. Pupils are equal, round. Sclerae anicteric. Conjunctivae are clear. Mucous membranes of the mouth are moist. Neck is supple. There is no jugular venous distention. No carotid bruit is heard. CHEST EXAMINATION: Lungs are diminished with bibasilar crackles. No chest wall tenderness is noted on palpation or with deep breathing. HEART EXAMINATION: Heart regular rate and rhythm. S1, S2 heard. No murmurs, gallops or rub. ABDOMEN: Soft, nontender. Bowel sounds are heard. No organomegaly noted. EXTREMITIES: 2+ peripheral pulses with no evidence of peripheral edema and no calf tenderness noted. NEUROLOGIC EXAMINATION: Patient is awake, alert and oriented x2. LABORATORY DATA: WBC 7.9, hemoglobin 11.1, sodium 140, potassium 4.8, BUN/creatinine 33, creatinine 0.89, magnesium 1.7, troponins negative 2, the BNP for 413. TSH on last admission was 0.826. Past Medical History Past Medical History: Hypertension, Osteoarthritis (OA) Additional Past Medical History / Comment(s): HX OF GLAUCOMA, HX OF CELLULITIS IN LEGS & FEET OCT 2016., BLOOD IN STOOL. History of Any Multi-Drug Resistant Organisms: None Reported Past Surgical History: Bladder Surgery, Hysterectomy, Tonsillectomy Additional Past Surgical History / Comment(s): bunionectomy rosa feet, laser eye sx for glaucoma, plastic sx on nose, bladder suspension, egd/colonoscopy. Past Anesthesia/Blood Transfusion Reactions: No Reported Reaction Past Psychological History: Anxiety, Depression Smoking Status: Former smoker Past Alcohol Use History: Occasional Additional Past Alcohol Use History / Comment(s): started smoking at ge 17 smoked 1-2 ppd, quit in early Past Drug Use History: None Reported - Past Family History Mother Family Medical History: Coronary Artery Disease (CAD) Additional Family Medical History / Comment(s): heart problems Father Additional Family Medical History / Comment(s): anuerysm Medications and Allergies Home Medications Medication Instructions Recorded Confirmed Type Citalopram Hydrobromide [CeleXA] 20 mg PO HS 10/02/16 02/05/19 History Aspirin EC [Ecotrin Low Dose] 81 mg PO HS 11/24/17 02/05/19 History amLODIPine [Norvasc] 5 mg PO DAILY 11/24/17 02/05/19 History busPIRone HCl [Buspar] 5 mg PO BID 11/24/17 02/05/19 History Acetaminophen Tab [Tylenol] 650 mg PO Q6HR PRN tab 01/28/19 02/05/19 Rx Chlorthalidone 25 mg PO DAILY #1 tab 01/28/19 02/05/19 Rx Bisacodyl [Dulcolax] 10 mg RECTAL DAILY PRN 02/05/19 02/05/19 History Doxycycline Hyclate 100 mg PO BID 02/05/19 02/05/19 History Ipratropium-Albuterol Nebulize 3 ml INHALATION RT-QID 02/05/19 02/05/19 History [Duoneb 0.5 mg-3 mg/3 ml Soln] Na Phos,M-B/Na Phos,Di-Ba [Fleet 1 dose RECTAL DAILY PRN 02/05/19 02/05/19 History Adult] Allergies Allergy/AdvReac Type Severity Reaction Status Date / Time codeine AdvReac Nausea & Verified 02/05/19 21:14 Vomiting Physical Exam Vitals: Vital Signs Temp Pulse Pulse Resp BP Pulse Ox 02/07/19 08:50 76 02/07/19 08:38 74 02/07/19 07:57 98.4 F 76 118/79 95 02/07/19 01:15 97.8 F 79 16 120/76 95 02/06/19 21:35 98.2 F 85 14 116/69 95 02/06/19 20:31 72 02/06/19 20:02 74 02/06/19 16:16 73 02/06/19 16:05 73 02/06/19 14:52 98.4 F 77 16 103/69 94 L 02/06/19 11:58 68 02/06/19 11:47 64 Intake and Output 02/06/19 02/07/19 02/07/19 22:59 06:59 14:59 Other: Voiding Method Bedpan # Voids 1 1 Results 02/07/19 06:06 02/07/19 06:06 Cardiac Enzymes 02/07/19 Range/Units 06:06 Troponin I <0.012 (0.000-0.034) ng/mL CBC 02/07/19 Range/Units 06:06 WBC 7.9 (3.8-10.6) k/uL RBC 3.90 (3.80-5.40) m/uL Hgb 11.1 L (11.4-16.0) gm/dL Hct 34.9 (34.0-46.0) % Plt Count 230 (150-450) k/uL Comprehensive Metabolic Panel 02/07/19 Range/Units 06:06 Sodium 140 (137-145) mmol/L Potassium 4.8 (3.5-5.1) mmol/L Chloride 97 L (98-107) mmol/L Carbon Dioxide 35 H (22-30) mmol/L BUN 33 H (7-17) mg/dL Creatinine 0.89 (0.52-1.04) mg/dL Glucose 111 H (74-99) mg/dL Calcium 9.2 (8.4-10.2) mg/dL Current Medications Generic Name Dose Route Start Last Admin Trade Name Freq PRN Reason Stop Dose Admin Acetaminophen 650 mg 02/06/19 01:36 02/06/19 10:28 Tylenol Tab PO 650 mg Q6HR PRN Administration Mild Pain or Fever > 100.5 Albuterol/Ipratropium 3 ml 02/06/19 08:00 02/07/19 08:38 Duoneb 0.5 Mg-3 Mg/3 Ml Soln INHALATION 3 ml RT-QID MICHI Administration Albuterol/Ipratropium 3 ml 02/06/19 18:11 Duoneb 0.5 Mg-3 Mg/3 Ml Soln INHALATION RT-TID PRN Shortness Of Breath Or Wheezing Alprazolam 0.25 mg 02/06/19 18:12 Xanax PO TID PRN Anxiety Amlodipine Besylate 5 mg 02/06/19 09:00 02/07/19 10:07 Norvasc PO 5 mg DAILY MICHI Administration Aspirin 81 mg 02/06/19 21:00 02/06/19 21:40 Aspirin PO 81 mg HS MICHI Administration Bisacodyl 10 mg 02/06/19 18:09 Dulcolax RECTAL DAILY PRN Constipation Buspirone HCl 5 mg 02/06/19 09:00 02/07/19 10:06 Buspar PO 5 mg BID MICHI Administration Citalopram Hydrobromide 20 mg 02/06/19 21:00 02/06/19 21:41 Celexa PO 20 mg HS MICHI Administration Heparin Sodium (Porcine) 5,000 unit 02/06/19 21:00 02/07/19 10:06 Heparin SQ 5,000 unit Q12HR MICHI Administration Naloxone HCl 0.2 mg 02/06/19 01:35 Narcan IV Q2M PRN Opioid Reversal Pantoprazole Sodium 40 mg 02/07/19 07:30 02/07/19 10:07 Protonix PO 40 mg [id number] MICHI Administration Intake and Output 02/06/19 02/07/19 02/07/19 22:59 06:59 14:59 Other: Voiding Method Bedpan # Voids 1 1 02/07/19 06:06 02/07/19 06:06 EKG Interpretations (text) Sinus rhythm with left bundle branch block and PVCs Assessment and Plan Plan: FINAL ASSESSMENT AND PLAN: 1. Hypertension, well controlled. 2. Hypoxia, currently asymptomatic on O2 3. Left bundle branch block. PLAN: We will add Lasix 20 mg by mouth daily. Repeat echocardiogram to assess LV function.
--- NOTE | 2019-02-07 14:13 | ECHOF ---
Referral Reason:chf MEASUREMENTS -------- HEIGHT: 165.1 cm WEIGHT: 77.1 kg BP: 120/76 RVIDd: 2.7 cm (< 3.3) IVSd: 1.1 cm (0.6 - 1.1) LVIDd: 3.0 cm (3.9 - 5.3) LVPWd: 1.2 cm (0.6 - 1.1) IVSs: 1.6 cm LVIDs: 2.1 cm LVPWs: 1.6 cm LA Diam: 3.1 cm (2.7 - 3.8) LAESV Index (A-L): 26.24 ml/m Ao Diam: 3.0 cm (2.0 - 3.7) AV Cusp: 1.9 cm (1.5 - 2.6) MV EXCURSION: 9.436 mm (> 18.000) MV EF SLOPE: 61 mm/s (70 - 150) EPSS: 0.5 cm MV E Zoran: 0.64 m/s MV DecT: 457 ms MV A Zoran: 1.15 m/s MV E/A Ratio: 0.56 AV maxP.64 mmHg AV meanP.51 mmHg RAP: 5.00 mmHg RVSP: 40.01 mmHg FINDINGS -------- Sinus rhythm. This was a technically adequate study. The left ventricular size is normal. There is borderline concentric left ventricular hypertrophy. Overall left ventricular systolic function is normal with, an EF between 55 - 60 %. The right ventricle is normal in size. Normal LA size by volume 22+/-6 ml/m2. The right atrium is normal in size. There is mild aortic valve sclerosis. Mild mitral annular calcification present. Mild tricuspid regurgitation present. There is mild pulmonary hypertension. The right ventricular systolic pressure, as measured by Doppler, is 40.01mmHg. Trace/mild (physiologic) pulmonic regurgitation. The aortic root size is normal. IVC Not well visulized. There is no pericardial effusion. CONCLUSIONS -------- 1. Sinus rhythm. 2. This was a technically adequate study. 3. The left ventricular size is normal. 4. There is borderline concentric left ventricular hypertrophy. 5. Overall left ventricular systolic function is normal with, an EF between 55 - 60 %. 6. The right ventricle is normal in size. 7. Normal LA size by volume 22+/-6 ml/m2. 8. The right atrium is normal in size. 9. There is mild aortic valve sclerosis. 10. Mild mitral annular calcification present. 11. Mild tricuspid regurgitation present. 12. There is mild pulmonary hypertension. 13. The right ventricular systolic pressure, as measured by Doppler, is 40.01mmHg. 14. Trace/mild (physiologic) pulmonic regurgitation. 15. The aortic root size is normal. 16. IVC Not well visulized. 17. There is no pericardial effusion. SHIP ERECTOR: Rachel Epperson RDCS
[2019-02-07] MEDS: FUROSEMIDE 20 MG TAB PO SCH (15:07)
[2019-02-07] MEDS: ASPIRIN 81 MG PO SCH (21:20)
[2019-02-07] MEDS: CITALOPRAM HYDROBROMIDE 20 MG TAB PO SCH (21:20)
[2019-02-08 01:50] VITALS: RESP 16
[2019-02-08 07:50] LABS: Basophils % (A) 0 %; Eosinophils # (A) 0.1 k/uL (0-0.7); Eosinophils % (A) 2 %; HCT 32.9 % (34.0-46.0); HGB 10.5 gm/dL (11.4-16.0); Lymphocytes # (A) 0.7 k/uL (1.0-4.8); Lymphocytes % (A) 11 %; MCH 28.6 pg (25.0-35.0); MCHC 32.1 g/dL (31.0-37.0); MCV 89.1 fL (80.0-100.0); Mean Platelet Volume 11.3; Monocytes # (A) 0.4 k/uL (0-1.0); Monocytes % (A) 6 %; Neutrophils # (A) 5.3 k/uL (1.3-7.7); Neutrophils % (A) 78 %; Platelet Count 247 k/uL (150-450); RBC 3.69 m/uL (3.80-5.40); RDW 14.7 % (11.5-15.5); WBC 6.7 k/uL (3.8-10.6)
[2019-02-08] MEDS: PANTOPRAZOLE 40 MG TABLET PO SCH (07:54)
[2019-02-08 08:23] LABS: Calcium 9.3 mg/dL (8.4-10.2)
--- NOTE | 2019-02-08 08:27 | PN ---
PROGRESS NOTE DATE OF SERVICE: 02/07/2019 This 88-year-old woman was admitted with shortness of breath and hypoxia is improving significantly. Patient has possibly CHF also. A 2D echo with Doppler showed ejection fraction 55-60%. No chest pain. No palpitations. No fever. EXAM: Alert and oriented x3. Pulse is 90, blood pressure 115/70, respiration 18, temperature 98.2, pulse ox 94% on 3 L. HEENT: Conjunctivae normal. Oral mucosa moist. NECK: No jugular venous distention. No lymph node enlargement. CARDIOVASCULAR: S1, S2. RESPIRATORY: Diminished breath sounds at the bases. A few rhonchi, no crackles. ABDOMEN: Soft, nontender. LEGS: No swelling. NERVOUS SYSTEM: No focal deficits. LAB STUDIES: WBC 7, hemoglobin 11.1, sodium 140, potassium 4.8, BUN is 33. ASSESSMENT: 1. Congestive heart failure acute exacerbation with acute on chronic diastolic dysfunction possibly with acute hypoxic respiratory failure. Ejection fraction 55- 60%. 2. Hypokalemia. 3. Increased WBC. 4. Hypertension. 5. History of degenerative joint disease. 6. History of glaucoma. 7. History of cellulitis of the legs. 8. History of recent renal failure and fluid overload. 9. History of anxiety, depression. 10.Remote history of nicotine dependence. 11.NO CODE, NO CPR, NO VENT. RECOMMENDATIONS AND DISCUSSION: I recommend to continue current management, continue symptomatic treatment. Otherwise, we will monitor creatinine very closely and currently BUN is 33 and troponins are negative. Closely follow with Cardiology. Prognosis guarded. Further recommendations to follow. Patient is definitely feeling better at this time. MMODL / IJN: [id number] /
[2019-02-08] MEDS: FUROSEMIDE 20 MG TAB PO SCH (09:03)
[2019-02-08] MEDS: amLODIPine 5 MG TAB PO SCH (09:03)
[2019-02-08] MEDS: HEPARIN SODIUM,PORCINE 5,000 UNIT/ML 1 ML VIAL SQ SCH ×2 (09:03→22:07)
[2019-02-08] MEDS: busPIRone HCl 5 MG TAB PO SCH ×2 (09:03→22:06)
[2019-02-08] MEDS: IPRATROPIUM-ALBUTEROL 3 ML NEB INHALATION SCH ×4 (09:31→21:06)
--- NOTE | 2019-02-08 19:17 | PN ---
PROGRESS NOTE DATE OF SERVICE: 02/08/2019 This 88-year-old woman who was admitted CHF exacerbation with acute on chronic diastolic dysfunction, improved significantly. No chest pain. No palpitations. No fever. EXAM: Alert and oriented. Pulse 89, blood pressure 115/72, respirations 16, temperature 98.2, pulse ox 98% on room air. HEENT: Conjunctivae normal. NECK: No jugular venous distention. CARDIOVASCULAR: S1, S2 muffled. RESPIRATORY: Breath sounds diminished in the bases. Bilateral scattered rhonchi and crackles. ABDOMEN: Soft, nontender. LEGS: No edema NERVOUS SYSTEM: No focal deficits. LABS: WBC 6.7, hemoglobin 10.5, sodium 140, potassium 5. ASSESSMENT: 1. Congestive heart failure acute exacerbation with acute on chronic diastolic dysfunction with possible acute hypoxic respiratory failure, ejection fraction 50- 60 percent. 2. Hypokalemia. 3. Increased WBC. 4. Hypertension. 5. History of degenerative joint disease. 6. History of glaucoma. 7. History of cellulitis of the legs. 8. History of recent renal failure, fluid overload. 9. History of anxiety and depression. 10.History of nicotine dependence. 11.NO CODE, NO CPR, NO CENT. RECOMMENDATIONS AND DISCUSSION: I recommend to continue current medications, continue to monitor, continue with symptomatic treatment. Otherwise at this time I recommend continue the current medications. Monitor fluid and electrolytes balance closely. The patient is on a small dose of diuretics. Further recommendations to follow. MMODL / IJN: [id number] /
[2019-02-08] MEDS: ASPIRIN 81 MG PO SCH (22:06)
[2019-02-08] MEDS: CITALOPRAM HYDROBROMIDE 20 MG TAB PO SCH (22:07)
[2019-02-09] MEDS: IPRATROPIUM-ALBUTEROL 3 ML NEB INHALATION SCH ×3 (07:39→16:18)
[2019-02-09 07:57] LABS: Basophils % (A) 0 %; Eosinophils # (A) 0.3 k/uL (0-0.7); Eosinophils % (A) 4 %; HCT 34.9 % (34.0-46.0); HGB 10.9 gm/dL (11.4-16.0); Lymphocytes # (A) 0.8 k/uL (1.0-4.8); Lymphocytes % (A) 13 %; MCH 28.5 pg (25.0-35.0); MCHC 31.2 g/dL (31.0-37.0); MCV 91.3 fL (80.0-100.0); Mean Platelet Volume 8.6; Monocytes # (A) 0.4 k/uL (0-1.0); Monocytes % (A) 6 %; Neutrophils # (A) 4.8 k/uL (1.3-7.7); Neutrophils % (A) 74 %; Platelet Count 269 k/uL (150-450); RBC 3.82 m/uL (3.80-5.40); RDW 12.6 % (11.5-15.5); WBC 6.4 k/uL (3.8-10.6)
[2019-02-09 08:14] LABS: Calcium 9.3 mg/dL (8.4-10.2); Potassium 4.1 mmol/L (3.5-5.1)
[2019-02-09] MEDS: busPIRone HCl 5 MG TAB PO SCH (11:11)
[2019-02-09] MEDS: PANTOPRAZOLE 40 MG TABLET PO SCH (11:12)
[2019-02-09] MEDS: FUROSEMIDE 20 MG TAB PO SCH (11:12)
[2019-02-09] MEDS: amLODIPine 5 MG TAB PO SCH (11:12)
[2019-02-09] MEDS: HEPARIN SODIUM,PORCINE 5,000 UNIT/ML 1 ML VIAL SQ SCH (11:12)
--- NOTE | 2019-02-09 15:19 | DS ---
DISCHARGE SUMMARY DATE OF: 02/06/2019 DATE OF DISCHARGE: 02/09/2019 FINAL DIAGNOSES: 1. Acute on chronic congestive heart failure exacerbation from diastolic dysfunction. Ejection fraction 50%-60%. 2. Hypokalemia. 3. Essential hypertension. 4. Depression, not otherwise specified. 5. Acute hypoxic respiratory failure from congestive heart failure, POA. CONSULTATION: Dr. Amato from Cardiology. HOSPITAL COURSE: This patient presented with shortness of breath and hypoxia, given Lasix. Pulmonary embolism was ruled out. Doing better at the time of discharge. A 2D echo showed preserved LV function, feeling better, tolerating a diet. PHYSICAL EXAMINATION: Temperature 98.1, pulse 86, respirations 16, blood pressure 122/75. LUNGS: Fair entry. INVESTIGATIONS: White count 6.4, hemoglobin 10.9, potassium 4.1, BUN 33, creatinine 0.76. DISCHARGE MEDICATIONS: 1. Celexa 20 mg q.h.s. 2. Aspirin 81 mg q.h.s. 3. Norvasc 5 mg p.o. daily. 4. BuSpar 5 mg p.o. b.i.d. 5. Tylenol 650 mg q.6 p.r.n. 6. Dulcolax 10 mg rectally daily p.r.n. 7. DuoNeb q.i.d. 8. Lasix 20 mg p.o. daily. DISPOSITION: [facility]. FOLLOWUP: Follow up with Dr. Allison at [facility]. LABS: CBC, BMP in 5 days. MMODL / IJN: [id number] /
[2019-02-09 15:34] VITALS: BP 114/74; PULSE 86; TEMP 98.4
== END 2019-02-09 16:05 | DRG 291 ==
LOC: EC 21:02 → 4SSUR 02-06 01:35
PROVIDERS: ADMIT Hospitalist; ATTEND Hospitalist
DX: I11.0 Hypertensive heart disease with heart failure (principal); J96.01 Acute respiratory failure with hypoxia; I50.33 Acute on chronic diastolic (congestive) heart failure; I27.20 Pulmonary hypertension, unspecified; I44.7 Left bundle-branch block, unspecified; I35.0 Nonrheumatic aortic (valve) stenosis; E87.6 Hypokalemia; F32.9 Major depressive disorder, single episode, unspecified; H40.9 Unspecified glaucoma; Z66 Do not resuscitate; F41.9 Anxiety disorder, unspecified; M19.90 Unspecified osteoarthritis, unspecified site; R91.1 Solitary pulmonary nodule; D72.829 Elevated white blood cell count, unspecified; Z79.82 Long term (current) use of aspirin; Z79.899 Other long term (current) drug therapy; Z87.891 Personal history of nicotine dependence; Z90.710 Acquired absence of both cervix and uterus; Z88.5 Allergy status to narcotic agent; Z82.49 Family history of ischemic heart disease and other diseases of the circulatory system
CPT/HCPCS: 36415; 71045; 71046; 71275; 80048; 80053; 83735; 83880; 84484; 85025; 85610; 85730; 93005; 93306; 94640; 94760; 99285

== ENCOUNTER 2019-03-12 11:08 | Emergency (ER) | payer MEDICARE, OTHER ==
--- NOTE | 2019-03-12 11:42 | ED ---
General Adult HPI - General Chief complaint: Extremity Problem,Nontraumatic Stated complaint: Knee pain Time Seen by Provider: 03/12/19 11:15 Source: patient, EMS, RN notes reviewed Mode of arrival: EMS Limitations: altered mental status - History of Present Illness Initial comments: This is an 89-year-old female presents emergency department via EMS. According to EMS family states they wanted her left knee evaluated. Patient herself states the knee hurts a little more than normal but she is able to have full range of motion. No one had any other history at this time family was not there at this time. Patient is demented and cannot give any further history. Family is not yet here. - Related Data Home Medications Medication Instructions Recorded Confirmed Citalopram Hydrobromide [CeleXA] 20 mg PO HS 10/02/16 03/12/19 Aspirin EC [Ecotrin Low Dose] 81 mg PO HS 11/24/17 03/12/19 amLODIPine [Norvasc] 5 mg PO DAILY 11/24/17 03/12/19 busPIRone HCl [Buspar] 5 mg PO BID 11/24/17 03/12/19 Hydrochlorothiazide [Hydrodiuril] 25 mg PO DAILY 03/12/19 03/12/19 Losartan Potassium 100 mg PO DAILY 03/12/19 03/12/19 Allergies Allergy/AdvReac Type Severity Reaction Status Date / Time codeine AdvReac Nausea & Verified 03/12/19 11:42 Vomiting Review of Systems ROS Statement: Those systems with pertinent positive or pertinent negative responses have been documented in the HPI. ROS Other: All systems not noted in ROS Statement are negative. Past Medical History Past Medical History: Hypertension, Osteoarthritis (OA) Additional Past Medical History / Comment(s): HX OF GLAUCOMA, HX OF CELLULITIS IN LEGS & FEET OCT 2016., BLOOD IN STOOL. History of Any Multi-Drug Resistant Organisms: None Reported Past Surgical History: Bladder Surgery, Hysterectomy, Tonsillectomy Additional Past Surgical History / Comment(s): bunionectomy rosa feet, laser eye sx for glaucoma, plastic sx on nose, bladder suspension, egd/colonoscopy. Past Anesthesia/Blood Transfusion Reactions: No Reported Reaction Past Psychological History: Anxiety, Depression Smoking Status: Former smoker Past Alcohol Use History: Occasional Past Drug Use History: None Reported - Past Family History Mother Family Medical History: Coronary Artery Disease (CAD) Additional Family Medical History / Comment(s): heart problems Father Additional Family Medical History / Comment(s): anuerysm General Exam - General Exam Comments Initial Comments: GENERAL Patient is well-developed and well-nourished. Patient is in mild distress. EYES Patient's pupils are equal and round. Extraocular motion is intact SKIN Unremarkable NEURO The patient is alert and oriented 3 PYSCH Patient has normal interpersonal interactions. MUSCULOSKELETAL Patient's full range of motion. She states it hurts a little when I move it but she is able to move it on her own as well. There is some fluid anterior to the kneecap but the area is not red or warm and there is no tenderness to palpating that fluid. Limitations: altered mental status Course Vital Signs 03/12/19 03/12/19 03/12/19 11:16 11:30 11:50 Temperature 98.9 F Pulse Rate 78 Respiratory 19 Rate Blood Pressure 99/55 93/50 105/57 O2 Sat by Pulse 95 93 L 95 Oximetry Medical Decision Making - Medical Decision Making X-ray shows prepatellar edema. The area is not red warm or tender to palpation I believe it's just a bursitis or effusion Disposition Clinical Impression: Prepatellar effusion Disposition: HOME SELF-CARE Condition: Good Instructions (If sedation given, give patient instructions): Knee Bursitis (ED) Additional Instructions: Patient should take 400 mg Motrin 3 times a day. Patient should do this for 5 days and follow-up with her primary Is patient prescribed a controlled substance at d/c from ED?: No Referrals: Sidra Peace DO [Primary Care Provider] - 1-2 days Time of Disposition: 12:45
--- NOTE | 2019-03-12 12:19 | XR ---
EXAMINATION TYPE: XR knee complete LT DATE OF EXAM: 03/12/2019 COMPARISON: NONE HISTORY: 89-year-old female pain and swelling TECHNIQUE: 3 views FINDINGS: Mild narrowing of medial compartment cartilage and joint space. Bilateral meniscal chondrocalcinosis. Slight medial positioning of meniscal calcifications within the medial compartment. Prepatellar soft tissue swelling. Extensor mechanism appears intact. Small knee joint effusion is nonspecific. No acu te fracture, subluxation, dislocation. IMPRESSION: 1. Prepatellar soft tissue swelling could represent contusion, cellulitis, hematoma, or prepatellar b ursitis. Clinically correlate. 2. Degenerative joint space narrowing the medial compartment. Suspect underlying medial meniscal tea r. 3. Nonspecific small knee joint effusion. 4. Meniscal chondrocalcinosis could be idiopathic or could reflect underlying CPPD. 5. No acute osseous abnormality seen.
[2019-03-12 13:13] VITALS: BP 101/62; PULSE 74; RESP 18; TEMP 98
== END 2019-03-12 12:52 | disposition home or self-care (01) ==
LOC: EC 11:08
DX: M25.462 Effusion, left knee (principal); F03.90 Unspecified dementia, unspecified severity, without behavioral disturbance, psychotic disturbance, mood disturbance, and anxiety; I10 Essential (primary) hypertension; M19.90 Unspecified osteoarthritis, unspecified site; F32.9 Major depressive disorder, single episode, unspecified; F41.9 Anxiety disorder, unspecified; Z87.891 Personal history of nicotine dependence; Z88.5 Allergy status to narcotic agent; Z79.82 Long term (current) use of aspirin; Z79.899 Other long term (current) drug therapy
CPT/HCPCS: 99283

== ENCOUNTER 2019-04-24 11:11 | Emergency (ER) | payer MEDICARE, OTHER ==
[2019-04-24 11:20] VITALS: RESP 18
--- NOTE | 2019-04-24 12:04 | XR ---
EXAMINATION TYPE: XR sacrum coccyx DATE OF EXAM: 04/24/2019 COMPARISON: NONE HISTORY: Pain Three views are submitted. Sacrum is intact. SI joints are symmetric. Coccyx appears to be intact. Visualized pelvic structures intact. Arthropathy of the hips correlate for femoral distal margin o f the coccyx is not well seen. Degenerative change of the lower lumbar spine with facet arthropathy. Soft tissue IMPRESSION: 1. The sacrococcygeal junction is somewhat lucent and difficult to visualize consider follow-up CT sc an to assess for fracture.
--- NOTE | 2019-04-24 12:42 | ED ---
Fall HPI - General Chief Complaint: Fall Stated Complaint: Fall Time Seen by Provider: 04/24/19 11:23 Source: EMS Mode of arrival: EMS - History of Present Illness Initial Comments: Patient is an 89-year-old female presenting to the emergency department with her daughter after fall from her lift chair. Daughter reports that incident occurred approximately 3 AM this morning when the patient slipped out of her chair. Patient denied loss of consciousness time of incident. Mother reports the patient lives in an assisted living facility. Patient reports pain at the coccyx that is exacerbated with palpation or when sitting up. Patient reports the pain does not radiate anywhere and rates it a 5. Patient denies pain anywhere in the body. Patient denies shortness of breath, chest pain or chest tightness headaches, blurry vision, nausea, vomiting, abdominal pain or back pain. Patient denies any numbness or tingling. - Related Data Home Medications Medication Instructions Recorded Confirmed Citalopram Hydrobromide [CeleXA] 20 mg PO HS 10/02/16 04/24/19 Aspirin EC [Ecotrin Low Dose] 81 mg PO HS 11/24/17 04/24/19 amLODIPine [Norvasc] 5 mg PO DAILY 11/24/17 04/24/19 busPIRone HCl [Buspar] 5 mg PO BID 11/24/17 04/24/19 Hydrochlorothiazide [Hydrodiuril] 25 mg PO DAILY 03/12/19 04/24/19 Losartan Potassium 100 mg PO DAILY 03/12/19 04/24/19 Allergies Allergy/AdvReac Type Severity Reaction Status Date / Time codeine AdvReac Nausea & Verified 04/24/19 11:22 Vomiting Review of Systems ROS Statement: Those systems with pertinent positive or pertinent negative responses have been documented in the HPI. ROS Other: All systems not noted in ROS Statement are negative. Past Medical History Past Medical History: Hypertension, Osteoarthritis (OA) Additional Past Medical History / Comment(s): HX OF GLAUCOMA, HX OF CELLULITIS IN LEGS & FEET OCT 2016., BLOOD IN STOOL. History of Any Multi-Drug Resistant Organisms: None Reported Past Surgical History: Bladder Surgery, Hysterectomy, Tonsillectomy Additional Past Surgical History / Comment(s): bunionectomy rosa feet, laser eye sx for glaucoma, plastic sx on nose, bladder suspension, egd/colonoscopy. Past Anesthesia/Blood Transfusion Reactions: No Reported Reaction Past Psychological History: Anxiety, Depression Smoking Status: Former smoker Past Alcohol Use History: Occasional Past Drug Use History: None Reported - Past Family History Mother Family Medical History: Coronary Artery Disease (CAD) Additional Family Medical History / Comment(s): heart problems Father Additional Family Medical History / Comment(s): anuerysm General Exam Limitations: physical limitation General appearance: alert, in no apparent distress Head exam: Present: atraumatic, normocephalic, normal inspection. Absent: other (Raccoon eyes, matamoros sign or hemotympanum) Eye exam: Present: normal appearance, PERRL, EOMI Pupils: Present: normal accommodation ENT exam: Present: normal exam, mucous membranes moist, TM's normal bilaterally Neck exam: Present: normal inspection, full ROM. Absent: tenderness Respiratory exam: Present: normal lung sounds bilaterally Cardiovascular Exam: Present: regular rate, normal rhythm, normal heart sounds Extremities exam: Present: normal inspection, full ROM, normal capillary refill, other (+2 dorsalis pedis and posterior tibialis, bilaterally. Muscle strength equal bilaterally on her lower extremities.) Back exam: Present: normal inspection, full ROM, tenderness (Coccygeal tenderness with palpation) Neurological exam: Present: alert, oriented X3 Psychiatric exam: Present: normal affect, normal mood Skin exam: Present: warm, intact, normal color Course Vital Signs 04/24/19 11:15 Temperature 99.2 F Pulse Rate 75 Respiratory 18 Rate Blood Pressure 120/63 O2 Sat by Pulse 97 Oximetry Medical Decision Making - Medical Decision Making Patient is a 9-year-old female presenting to emergency Department after fall. X-ray of the sacrum and coccyx was obtained but coccyx cannot be fully seen. CT of the sacrum and coccyx is was obtained and is negative for acute fractures or subluxations. Radiology suggesting MRI for more sensitive testing. Patient advised to follow-up with orthopedics. Patient advised to follow with primary care. Strict return parameters were thoroughly discussed with patient and her daughter were understanding and agreeable. Case discussed with Dr. Mansfield who is in agreement with the treatment plan. Disposition Clinical Impression: Fall Disposition: HOME SELF-CARE Condition: Stable Instructions (If sedation given, give patient instructions): Fall Prevention for Older Adults (ED) Additional Instructions: Please follow-up with orthopedics. Please alternate between Tylenol and ibuprofen for pain control. Please return to emergency department if symptoms worsen. Is patient prescribed a controlled substance at d/c from ED?: No Referrals: Sidra Peace DO [Primary Care Provider] - 1-2 days Bahman Mtz DO [Doctor of Osteopathic Medicine] - 1-2 days Time of Disposition: 13:01
--- NOTE | 2019-04-24 12:48 | CT ---
EXAMINATION TYPE: CT sacrum wo con DATE OF EXAM: 04/24/2019 COMPARISON: Plain film same date HISTORY: Fall today, Abnormal plain film CT DLP: 244.5 mGycm Automated exposure control for dose reduction was used. Helical imaging through the sacrum and coccyx FINDINGS: Bone mineralization is reduced. Alignment is maintained. Coccyx not entirely included on the exam. De generative disc changes are noted at the lumbosacral junction. Vacuum phenomenon present at L5-S1 lev el. Facet arthropathy changes noted in the lower lumbar spine IMPRESSION: NO FRACTURE OR SUBLUXATION. DEGENERATIVE DISC DISEASE. MRI or bone scan could be performed for increa sed sensitivity as clinically indicated. Low bone mineralization may limit evaluation.
[2019-04-24 13:35] VITALS: BP 112/49; PULSE 71; TEMP 99
== END 2019-04-24 13:39 | disposition home or self-care (01) ==
LOC: EC 11:11
DX: Z04.3 Encounter for examination and observation following other accident (principal); I10 Essential (primary) hypertension; F41.9 Anxiety disorder, unspecified; F32.9 Major depressive disorder, single episode, unspecified; Z79.82 Long term (current) use of aspirin; Z79.899 Other long term (current) drug therapy; Z87.891 Personal history of nicotine dependence; Z88.5 Allergy status to narcotic agent
CPT/HCPCS: 72192; 72220; 99285